=== PATIENT | female | born 1965 | race Caucasian/White ===

== ENCOUNTER 2016-02-25 09:45 | Emergency (ER) | payer MEDICAID ==
[~2016-02-25 09:45] MED LIST: BUPR150T3 PO; FEXO15TA PO; GEOD80CA PO; MONT10TA2 PO; PERC10TA27 PO; PROT40TA PO; TRAZ100T4 PO; VENL25TA PO
[2016-02-25 09:46] VITALS: BP 134/90; PULSE 75; RESP 15; TEMP 98.2; O2SAT 98
--- NOTE | 2016-02-25 10:37 | PD ---
HPI Chief Complaint: Laceration/Skin Injury Time Seen by Provider: 10:08 Travel History International Travel<30 days: No Contact w/Intl Traveler<30days: No Traveled to known affect area: No History of Present Illness HPI 50-year-old female presents to the emergency department with concern of an infection to her surgical wound of her right foot and is also requesting pain medication. She had foot surgery on February 03 that was performed by Dr. Gilliam. She says there is an area of red around the surgical incision that she thinks is infection. She denies paresthesias, loss of sensation, decreased range of motion, decreased strength to the affected extremity. She is using crutches for support. She has a postop shoe and an Jasen bandage in place. She denies fever, chills, nausea, vomiting. She has a follow-up appointment with Dr. Gilliam on March 18. Allergies to fentanyl, Motrin, Toradol. No significant past medical history. No other modifying factors or associated signs and symptoms. History Past Medical Histgory LMP: 02/12/16 Menopausal: Yes Hx Cancer: No Social History Alcohol Use: No Tobacco Use: No Allergies-Medications (Allergen,Severity, Reaction): Coded Allergies: Fentanyl (Verified Allergy, Severe, GI UPSET, 02/25/16) Motrin (Verified Allergy, Severe, Anaphylaxis, 02/25/16) Toradol (Verified Allergy, Severe, Anaphylaxis, 02/25/16) *MDRO Multi-Drug Resistant Organism (Verified Adverse Reaction, Unknown, Cleared, 02/25/16) MRSA (groin wound) - 09/2012 MRSA PCR Screen NEGATIVE - 02/11/2015, 02/13/2015 CLEARED BY INFECTION CONTROL Reported Meds & Prescriptions Reported Meds & Active Scripts Active Reported Bupropion HCl ER 24 HR (Bupropion HCl) 150 Mg Tab 200 Mg PO DAILY Iy Allergy (Fexofenadine HCl) 180 Mg Tab 180 Mg PO DAILY Protonix (Pantoprazole Sodium) 40 Mg Tab 40 Mg PO DAILY Effexor (Venlafaxine HCl) 25 Mg Tab 25 Mg PO HS Trazodone (Trazodone HCl) 100 Mg Tab 100 Mg PO HS Singulair (Montelukast Sodium) 10 Mg Tab 10 Mg PO DAILY Geodon (Ziprasidone) 80 Mg Cap 80 Mg PO HS Review of Systems Except as stated in HPI: all other systems reviewed are Neg Physical Exam Narrative GENERAL: Well-nourished, well-developed female patient, in no acute distress; afebrile, nontoxic-appearing SKIN: Warm and dry. Surgical wound to the lateral aspect of the right foot at the fifth metatarsal area that is well approximated and without drainage or warmth to touch; there is an area of erythema surrounding the surgical wound that is consistent with normal healing. Surgical wound consistent with normal healing and without signs of infection. HEAD: Atraumatic. Normocephalic. EYES: Pupils equal and round. No scleral icterus. No injection or drainage. ENT: Mucosa pink and moist. Airway patent. NECK: Trachea midline. CARDIOVASCULAR: Regular rate. RESPIRATORY: No accessory muscle use. GASTROINTESTINAL: Rounded. MUSCULOSKELETAL: Right foot is nonerythematous and nonedematous. Right lower extremity supple and non-tense with 2+ pedal pulses and sensory intact and without erythema or edema. No obvious deformities. No clubbing. No cyanosis. No edema. NEUROLOGICAL: Awake and alert. Oriented 3. No obvious cranial nerve deficits. Motor grossly within normal limits. Normal speech. PSYCHIATRIC: Appropriate mood and affect; insight and judgment normal. Data Data Last Documented VS Vital Signs Date Time Temp Pulse Resp B/P Pulse Ox O2 Delivery O2 Flow Rate FiO2 02/25/16 09:46 98.2 75 15 134/90 98 MDM Medical Screen Exam Complete: Yes Emergency Medical Condition: No Differential Diagnosis Medical clearance, wound infection, narcotic seeking Narrative Course 50-year-old female physical exam consistent with surgical wound to the right foot with normal healing and no signs of infection. Patient is afebrile. She denies fever, chills, nausea, vomiting. Dr. Alvarez did surgery on February 03. Patient has follow-up appointment with Dr. Alvarez on March 18. The patient is also requesting pain medications. I offered the patient a nonnarcotic and she declined this time. Instructed patient to follow up with Dr. Alvarez at scheduled appointment. Vital signs are stable and the patient is stable for outpatient follow-up and treatment. The patient has no urgent or emergent medical complaints. There is no emergent or urgent medical need at this time. I instructed the patient to follow up with their primary care provider. A medical screening exam was performed: At the time of evaluation the presenting medical condition was determined not to be of an emergent nature. The patient was given the option of receiving additional care, but declined. Patient was given options for additional community resources from which to obtain care. The Patient Has Been advised to seek medical attention for their presenting complaint. The patient has been advised to return to the ER at any time if an emergent condition develops. Primary Impression: Encounter for medical screening examination Condition: Stable Monse Burr Feb 25, 2016 10:37
== END 2016-02-25 10:48 | disposition left against medical advice (07) ==
LOC: NEPB 09:45
DX: M79.671 Pain in right foot (principal)
CPT/HCPCS: 99281

== ENCOUNTER 2016-03-08 14:55 | Emergency (ER) | payer MEDICAID ==
[~2016-03-08] VITALS: Ht 165.1 cm; Wt 60.0 kg
[~2016-03-08 14:55] MED LIST changes: -PERC10TA27 PO
[2016-03-08 14:57] VITALS: BP 156/80; PULSE 96; RESP 14; TEMP 98.2; O2SAT 97
--- NOTE | 2016-03-08 17:36 | PD ---
HPI Chief Complaint: Abdominal Pain Time Seen by Provider: 17:36 Travel History International Travel<30 days: No Contact w/Intl Traveler<30days: No Traveled to known affect area: No History of Present Illness HPI 50-year-old female with history of recurrent, chronic abdominal pain, presents to emergency department for evaluation a right lower abdominal pain. Patient states "I know something is wrong." States she has been losing weight she has been nauseous with vomiting. She denies any diarrhea. She states that "they always tell may have a UTI, but I know it's more." States that she went to her primary care provider this week and he "refuses to send her to a director of materials management." Patient has history of appendectomy. No hematuria. No vaginal discharge or bleeding. Subjective fever and chills. No other symptoms to report. PFSH Past Medical History Asthma: Yes Anxiety: Yes Depression: Yes Cancer: No Cardiovascular Problems: No COPD: Yes Diabetes: No Diminished Hearing: No Endocrine: No Gastrointestinal Disorders: No GERD: Yes Genitourinary: No Hepatitis: Yes (hx of HEP C 1999) Herniated Disk: Yes Hypertension: No Immune Disorder: No Implanted Vascular Access Dvce: No Musculoskeletal: Yes (DDD, FISHERING ON SPINE) Neurologic: No Psychiatric: Yes (PTSD) Reproductive: Yes (ENDOMETRIOSIS ) Respiratory: Yes (ASTHMA) Immunizations Current: Yes Seizures: Yes (BACK WHEN SHE USED COCAINE) Thyroid Disease: No Menopausal: Yes : 2 Para: 2 Past Surgical History Abdominal Surgery: Yes (colysectomy APPENDIX) Appendectomy: Yes Section: Yes (1991, 1994) Cholecystectomy: Yes (2007) Gynecologic Surgery: Yes (, hysterectomy ) Hysterectomy: Yes Tonsillectomy: Yes Other Surgery: Yes (2 RIGHT KNEE SX, 1 LEFT KNEE SX, BACK SX,FACE SX AND NOSE SX ) Social History Alcohol Use: No Tobacco Use: No Substance Use: No Allergies-Medications (Allergen,Severity, Reaction): Coded Allergies: Fentanyl (Verified Allergy, Severe, GI UPSET, 03/08/16) Motrin (Verified Allergy, Severe, Anaphylaxis, 03/08/16) Toradol (Verified Allergy, Severe, Anaphylaxis, 03/08/16) *MDRO Multi-Drug Resistant Organism (Verified Adverse Reaction, Unknown, Cleared, 02/25/16) MRSA (groin wound) - 09/2012 MRSA PCR Screen NEGATIVE - 02/11/2015, 02/13/2015 CLEARED BY INFECTION CONTROL Reported Meds & Prescriptions Reported Meds & Active Scripts Active Reported Bupropion HCl ER 24 HR (Bupropion HCl) 150 Mg Tab 200 Mg PO DAILY Yi Allergy (Fexofenadine HCl) 180 Mg Tab 180 Mg PO DAILY Protonix (Pantoprazole Sodium) 40 Mg Tab 40 Mg PO DAILY Effexor (Venlafaxine HCl) 25 Mg Tab 25 Mg PO HS Trazodone (Trazodone HCl) 100 Mg Tab 100 Mg PO HS Singulair (Montelukast Sodium) 10 Mg Tab 10 Mg PO DAILY Geodon (Ziprasidone) 80 Mg Cap 80 Mg PO HS Review of Systems Except as stated in HPI: all other systems reviewed are Neg Physical Exam Narrative GENERAL: Well-nourished female patient, in no acute distress SKIN: Warm and dry. HEAD: Atraumatic. Normocephalic. EYES: Pupils equal and round. No scleral icterus. No injection or drainage. ENT: No nasal bleeding or discharge. Mucous membranes pink and moist. NECK: Trachea midline. No JVD. CARDIOVASCULAR: Elevated rate and rhythm. No murmur appreciated. RESPIRATORY: No accessory muscle use. Clear to auscultation. Breath sounds equal bilaterally. GASTROINTESTINAL: Abdomen soft, nondistended. Suprapubic and right lower quadrant tenderness to palpation. Hepatic and splenic margins not palpable. MUSCULOSKELETAL: No obvious deformities. No clubbing. No cyanosis. No edema. NEUROLOGICAL: Awake and alert. No obvious cranial nerve deficits. Motor grossly within normal limits. Normal speech. Data Data Last Documented VS Vital Signs Date Time Temp Pulse Resp B/P Pulse Ox O2 Delivery O2 Flow Rate FiO2 03/08/16 14:57 98.2 96 14 156/80 97 Room Air Orders Urinalysis - C+S If Indicated (03/08/16 17:35) Complete Blood Count With Diff (03/08/16 17:35) Basic Metabolic Panel (Bmp) (03/08/16 17:35) Ondansetron Odt (Zofran Odt) (03/08/16 18:45) Ct Abd/Pel W Iv Contrast(Rout) (03/08/16 20:01) NPO (03/08/16 20:01) Morphine Inj (Morphine Inj) (03/08/16 20:15) Ondansetron Inj (Zofran Inj) (03/08/16 20:15) Sodium Chlor 0.9% 1000 Ml Inj (Ns 1000 M (03/08/16 20:01) Oral Contrast - Adult (03/08/16 20:13) Diatrizoate Liq ( Gastrohaim Liq) (03/08/16 20:21) Labs Laboratory Tests Test 03/08/16 18:40 White Blood Count 12.1 TH/MM3 Red Blood Count 3.98 MIL/MM3 Hemoglobin 10.0 GM/DL Hematocrit 30.5 % Mean Corpuscular Volume 76.6 FL Mean Corpuscular Hemoglobin 25.2 PG Mean Corpuscular Hemoglobin 33.0 % Concent Red Cell Distribution Width 14.4 % Platelet Count 330 TH/MM3 Mean Platelet Volume 7.3 FL Neutrophils (%) (Auto) 68.2 % Lymphocytes (%) (Auto) 21.5 % Monocytes (%) (Auto) 9.0 % Eosinophils (%) (Auto) 0.9 % Basophils (%) (Auto) 0.4 % Neutrophils # (Auto) 8.3 TH/MM3 Lymphocytes # (Auto) 2.6 TH/MM3 Monocytes # (Auto) 1.1 TH/MM3 Eosinophils # (Auto) 0.1 TH/MM3 Basophils # (Auto) 0.0 TH/MM3 CBC Comment DIFF FINAL Differential Comment Urine Color YELLOW Urine Turbidity CLEAR Urine pH 7.0 Urine Specific [place] 1.016 Urine Protein TRACE mg/dL Urine Glucose (UA) NEG mg/dL Urine Ketones NEG mg/dL Urine Occult Blood NEG Urine Nitrite NEG Urine Bilirubin NEG Urine Urobilinogen 2.0 MG/DL Urine Leukocyte Esterase NEG Urine RBC LESS THAN 1 /hpf Urine WBC 1 /hpf Urine Squamous Epithelial 1 /hpf Cells Urine Mucus FEW /lpf Microscopic Urinalysis Comment CULT NOT INDICATED Sodium Level 137 MEQ/L Potassium Level 3.2 MEQ/L Chloride Level 103 MEQ/L Carbon Dioxide Level 24.9 MEQ/L Anion Gap 9 MEQ/L Blood Urea Nitrogen 8 MG/DL Creatinine 0.71 MG/DL Estimat Glomerular Filtration 87 ML/MIN Rate Random Glucose 78 MG/DL Calcium Level 8.9 MG/DL [facility] Medical Decision Making Medical Screen Exam Complete: Yes Emergency Medical Condition: Yes Medical Record Reviewed: Yes Differential Diagnosis Personality disorder versus mood disorder versus malingering versus UTI versus STD Narrative Course 50-year-old female presents to emergency department for evaluation of recurrent lower abdominal pain. Patient appears without distress. She does have right lower quadrant tenderness to palpation. Workup is initiated in triage. Once a medical bed becomes available, patient will be transferred and care assumed by that provider. Condition: Stable Bettina Owen Mar 08, 2016 17:36
[2016-03-08] MEDS ORDERED: ONDANSETRON ODT 4 MG TAB PO ONE (18:45)
[2016-03-08 18:59] LABS: AUTOMATED NEUTROPHIL # 8.3 TH/MM3 (1.8-7.7); BASOPHIL % 0.4 % (0.0-2.0); EOSINOPHIL # 0.1 TH/MM3 (0-0.4); EOSINOPHIL % 0.9 % (0.0-4.0); HEMATOCRIT 30.5 % (35.0-46.0); HEMO FLAGS DIFF FINAL; LYMPH % 21.5 % (9.0-44.0); LYMPHOCYTE # 2.6 TH/MM3 (1.0-4.8); MEAN CELL VOLUME 76.6 FL (80.0-100.0); MEAN CORPUSCULAR HEMOGLOBIN 25.2 PG (27.0-34.0); NEUT % 68.2 % (16.0-70.0); PLATELET COUNT 330 TH/MM3 (150-450); RED BLOOD COUNT 3.98 MIL/MM3 (4.00-5.30); RED CELL DISTRIBUTION WIDTH 14.4 % (11.6-17.2); WHITE BLOOD COUNT 12.1 TH/MM3 (4.0-11.0)
[2016-03-08 19:05] LABS: BLOOD, URINE NEG (NEG); COMMENT (UR) CULT NOT INDICATED; CULTURE IF INDICATED CULT NOT INDICATED; GLUCOSE,URINE NEG (NEG); KETONE, URINE NEG (NEG); MUCUS URINE FEW /lpf (OCC); NITRITE,URINE NEG (NEG); SQUAMOUS EPITHELIAL CELL URINE 1 /hpf (0-5); URINE COLOR YELLOW (YELLW/STRAW)
[2016-03-08 19:23] LABS: BICARBONATE 24.9 MEQ/L (21.0-32.0); POTASSIUM 3.2 MEQ/L (3.5-5.1)
[2016-03-08] MEDS ORDERED: SODIUM CHLOR 0.9% 1000 ML INJ 1,000 ML IV SCH (20:01)
[2016-03-08] MEDS ORDERED: MORPHINE SULFATE 4 MG/ML INJ IV PUSH ONE (20:15)
[2016-03-08] MEDS ORDERED: ONDANSETRON HCL 4 MG/2 ML VIAL IVP ONE (20:15)
[2016-03-08 20:20] VITALS: BP 144/84; PULSE 100; RESP 14; O2SAT 98
[2016-03-08] MEDS ORDERED: DIATRIZOATE MEGLUM/DIATRIZOATE SOD 9 ML CUP ONE (20:21)
--- NOTE | 2016-03-08 20:38 | PD ---
Physical Exam Date Seen by Provider: Mar 08, 2016 Time Seen by Provider: 20:00 Narrative 50-year-old female with history of chronic abdominal pain comes in with worsening right lower quadrant pain over the last 4 days and decreased ability to eat, with nausea and vomiting. Patient denies constipation or diarrhea. Patient denies fever. Patient was seen in triage, Bettina AGUDELO. Labs and urinalysis were ordered in triage. Data Data Last Documented VS Vital Signs Date Time Temp Pulse Resp B/P Pulse Ox O2 Delivery O2 Flow Rate FiO2 03/08/16 22:26 94 14 152/78 99 Room Air 03/08/16 14:57 98.2 Orders Urinalysis - C+S If Indicated (03/08/16 17:35) Complete Blood Count With Diff (03/08/16 17:35) Basic Metabolic Panel (Bmp) (03/08/16 17:35) Ondansetron Odt (Zofran Odt) (03/08/16 18:45) Ct Abd/Pel W Iv Contrast(Rout) (03/08/16 20:01) NPO (03/08/16 20:01) Morphine Inj (Morphine Inj) (03/08/16 20:15) Ondansetron Inj (Zofran Inj) (03/08/16 20:15) Sodium Chlor 0.9% 1000 Ml Inj (Ns 1000 M (03/08/16 20:01) Oral Contrast - Adult (03/08/16 20:13) Diatrizoate Liq ( Gastrohaim Liq) (03/08/16 20:21) Morphine Inj (Morphine Inj) (03/08/16 22:15) Hydromorphone Pf Inj (Dilaudid Pf Inj) (03/08/16 22:15) Iohexol 350 Inj (Omnipaque 350 Inj) (03/08/16 22:29) Labs Laboratory Tests Test 03/08/16 18:40 White Blood Count 12.1 TH/MM3 Red Blood Count 3.98 MIL/MM3 Hemoglobin 10.0 GM/DL Hematocrit 30.5 % Mean Corpuscular Volume 76.6 FL Mean Corpuscular Hemoglobin 25.2 PG Mean Corpuscular Hemoglobin 33.0 % Concent Red Cell Distribution Width 14.4 % Platelet Count 330 TH/MM3 Mean Platelet Volume 7.3 FL Neutrophils (%) (Auto) 68.2 % Lymphocytes (%) (Auto) 21.5 % Monocytes (%) (Auto) 9.0 % Eosinophils (%) (Auto) 0.9 % Basophils (%) (Auto) 0.4 % Neutrophils # (Auto) 8.3 TH/MM3 Lymphocytes # (Auto) 2.6 TH/MM3 Monocytes # (Auto) 1.1 TH/MM3 Eosinophils # (Auto) 0.1 TH/MM3 Basophils # (Auto) 0.0 TH/MM3 CBC Comment DIFF FINAL Differential Comment Urine Color YELLOW Urine Turbidity CLEAR Urine pH 7.0 Urine Specific [place] 1.016 Urine Protein TRACE mg/dL Urine Glucose (UA) NEG mg/dL Urine Ketones NEG mg/dL Urine Occult Blood NEG Urine Nitrite NEG Urine Bilirubin NEG Urine Urobilinogen 2.0 MG/DL Urine Leukocyte Esterase NEG Urine RBC LESS THAN 1 /hpf Urine WBC 1 /hpf Urine Squamous Epithelial 1 /hpf Cells Urine Mucus FEW /lpf Microscopic Urinalysis Comment CULT NOT INDICATED Sodium Level 137 MEQ/L Potassium Level 3.2 MEQ/L Chloride Level 103 MEQ/L Carbon Dioxide Level 24.9 MEQ/L Anion Gap 9 MEQ/L Blood Urea Nitrogen 8 MG/DL Creatinine 0.71 MG/DL Estimat Glomerular Filtration 87 ML/MIN Rate Random Glucose 78 MG/DL Calcium Level 8.9 MG/DL [facility] Medical Record Reviewed: Yes Supervised Visit with CINDY: Yes Differential Diagnosis Anxiety. Right lower quadrant pain. Diverticulitis. UTI. Malingering. Chronic pain. Narrative Course Labs reviewed showing slight leukocytosis. Urine is normal. CMP is unremarkable. Exam shows somewhat localized right lower quadrant tenderness with deep palpation and percussion rebound. Question psoas sign. CT of the abdomen is ordered with oral and IV contrast. Patient is given normal saline bolus of 1000 mL. Patient also given 4 mg IV Zofran, and [address] shows ill-defined inflammatory changes of the prevertebral soft tissue of the L4 5 level. The cause of this inflammatory changes not clearly seen. The adjacent bony structures appear intact. Inflammatory change of clots the venous structures in this region. The arterial structures are intact. Retroperitoneal fibrosis could potentially have this appearance. The patient does have suspected incidental stable small hernia lateral to the left rectus abdominal muscle containing only a small amount of mesenteric fat. Patient also has a mild hiatal hernia. This is per the radiologist. These findings were discussed with Dr. Franz. Dr. Franz feels the patient is stable and discharged home. She'll be given Zofran for nausea. She is given Lortab 5/325 one to 2 every 6 hours when necessary pain #20. She is to follow with her primary care physician and may need an MRI, which is discussed with the patient. Patient is also given the name of the GI consult on-call today. Patient may return to emergency Department with worsening symptoms as necessary. Diagnosis Primary Impression: Abdominal pain Qualified Code: R10.31 - Right lower quadrant abdominal pain Additional Impression: Nausea and vomiting Qualified Code: R11.2 - Non-intractable vomiting with nausea, unspecified vomiting type Referrals: Sury Jean-Baptiste MD Primary Care Physician Patient Instructions: Abdominal Pain (ED), Acute Nausea and Vomiting (ED), General Instructions, Narcotic given in the ED Additional Instruction: CT shows ill-defined inflammatory changes of the prevertebral soft tissue of the L4 5 level. The cause of this inflammatory changes not clearly seen. The adjacent bony structures appear intact. Inflammatory change of clots the venous structures in this region. The arterial structures are intact. Retroperitoneal fibrosis could potentially have this appearance. The patient does have suspected incidental stable small hernia lateral to the left rectus abdominal muscle containing only a small amount of mesenteric fat. Patient also has a mild hiatal hernia. This is per the radiologist. These findings were discussed with Dr. Franz. Dr. Franz feels the patient is stable and discharged home. She'll be given Zofran for nausea. She is given Lortab 5/325 one to 2 every 6 hours when necessary pain #20. She is to follow with her primary care physician and may need an MRI, which is discussed with the patient. Patient is also given the name of the GI consult on-call today. Patient may return to emergency Department with worsening symptoms as necessary. Scripts Hydrocodone-Acetaminophen (Lortab)5-325 Mg Tab1-2 Tab PO Q6H PRN (PAIN) #20 TAB Ref 0 Prov:Davian Franz MD 03/08/16 Ondansetron (Zofran)4 Mg Tab4 Mg PO Q6HR PRN (NAUSEA OR VOMITING) #12 TAB Prov:Davian Franz MD 03/08/16 Disposition: DISCHARGE HOME Condition: Stable Adelfo Dias F. PA Mar 08, 2016 20:38
[2016-03-08 21:30] VITALS: BP 148/76; PULSE 90; RESP 16; O2SAT 96
[2016-03-08] MEDS ORDERED: MORPHINE SULFATE 8 MG/ML INJ IV PUSH ONE (22:15)
[2016-03-08] MEDS ORDERED: HYDROmorphone HCL PF 1 MG/ML VIAL IV PUSH ONE (22:15)
[2016-03-08 22:26] VITALS: BP 152/78; PULSE 94; RESP 14; O2SAT 99
[2016-03-08] MEDS ORDERED: IOHEXOL 350 MG/ML 10 ML VIAL (for RAD DIAG) IV ONE (22:29)
--- NOTE | 2016-03-08 22:42 | RADRPT ---
EXAM DATE/TIME: 03/08/2016 22:23 [facility] COMPARISON: CT ABDOMEN & PELVIS W CONTRAST, January 11, 2016, 17:07. INDICATIONS : Diffuse abdominal pain for 3 days. IV CONTRAST: 92 cc Omnipaque 350 (iohexol) IV ORAL CONTRAST: Prescribed oral contrast ingested. RADIATION DOSE: 5.99 CTDIvol (mGy) MEDICAL HISTORY : Hepatitis C. SURGICAL HISTORY : Appendectomy. Cholecystectomy.Hysterectomy. ENCOUNTER: Initial ACUITY: 3 days PAIN SCALE: 4/10 LOCATION: Abdomen/pelvis TECHNIQUE: Volumetric scanning of the abdomen and pelvis was performed. Using automated exposure control and ad justment of the mA and/or kV according to patient size, radiation dose was kept as low as reasonably achievable to obtain optimal diagnostic quality images. FINDINGS: LOWER LUNGS: The visualized lower lungs are clear. LIVER: Homogeneous density without lesion. There is no dilation of the biliary tree. The patient is status post cholecystectomy. SPLEEN: Normal size without lesion. PANCREAS: Within normal limits. KIDNEYS: Normal in size and shape. There is no mass, stone or hydronephrosis. 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 ADRENAL GLANDS: Within normal limits. VASCULAR: There is no aortic aneurysm. BOWEL/MESENTERY: The stomach, small bowel, and colon demonstrate no acute abnormality. There is no free intraperitone al air or fluid. There is a small hiatal hernia present. ABDOMINAL WALL: There is a small hernia is seen lateral to the left rectus abdominal muscle containing only mesenteri c fat. This was present previously. The defect measures 1 cm. RETROPERITONEUM: There is increased ill-defined density seen in the prevertebral region anterior to the L4 and L5 vert ebral bodies. There is no lymphadenopathy. BLADDER: No wall thickening or mass. REPRODUCTIVE: The patient is status post hysterectomy. INGUINAL: There is no lymphadenopathy or hernia. MUSCULOSKELETAL: Within normal limits for patient age. CONCLUSION: 1. Ill-defined inflammatory change in the prevertebral soft tissues at the L4-L5 level. The cause of this inflammatory change is not clearly seen. The adjacent bony structures appear intact. The inflamm atory change abuts the venous structures in this region. The arterial structures are intact. Retroper itoneal fibrosis could potentially have this appearance. 2. Suspected incidental stable small hernia lateral to the left rectus abdominal muscle containing on ly a small amount of mesenteric fat. 3. Mild hiatal hernia. Ab Wan MD on March 08, 2016 at 22:32 Board Certified Radiologist. This report was verified electronically.
[2016-03-08] MEDS ORDERED: HYDR-3533 PO (23:00)
[2016-03-08] MEDS ORDERED: ZOFR4TAB PO (23:00)
== END 2016-03-09 00:04 | disposition home or self-care (01) ==
LOC: NEPE 14:55
DX: R10.31 Right lower quadrant pain (principal); R11.2 Nausea with vomiting, unspecified; J45.909 Unspecified asthma, uncomplicated; J44.9 Chronic obstructive pulmonary disease, unspecified
CPT/HCPCS: 74177; 80048; 81001; 85025; 96374; 96375; 96376; 99284; J2270; J2405; J7030; Q9963; Q9967

== ENCOUNTER 2016-03-16 10:37 | Emergency (ER) | payer MEDICAID ==
[~2016-03-16] VITALS: Ht 165.1 cm; Wt 61.5 kg
[~2016-03-16 10:37] MED LIST changes: +HYDR-3533 PO; +ZOFR4TAB PO
[2016-03-16 10:43] VITALS: BP 124/79; PULSE 89; RESP 16; TEMP 99.4; O2SAT 99
[2016-03-16] MEDS ORDERED: LORazepam 2 MG/ML VIAL IM ONE (11:30)
[2016-03-16] MEDS ORDERED: MORPHINE SULFATE 4 MG/ML INJ IM ONE (11:30)
--- NOTE | 2016-03-16 11:43 | PD ---
HPI . Low back pain Chief Complaint: Back/ Neck Pain or Injury Time Seen by Provider: 11:11 Travel History International Travel<30 days: No Contact w/Intl Traveler<30days: No Traveled to known affect area: No History of Present Illness HPI Patient presents with low back pain. The patient was seen in the emergency department on 03/08 with a complaint of abdominal and back pain. She had a CT scan of her abdomen done at that time which showed "ill-defined inflammatory changes in the prevertebral soft tissue at the L4- L5 level." The patient was discharged home with instructions to follow with her primary care provider. She states that she has done so and that she has an MRI scheduled for the . However, since that time, her back pain has become progressively worse. She states that it is "driving her crazy." She states that she is only comfortable laying flat on her back on a heating pad. She further states that she has soiled herself several times because she was unable to get to the bathroom in time. It is unclear to me if this was true incontinence or if she soiled herself because of pain associated with movement as she was attempting to go to the bathroom. In addition, the patient is concerned about low potassium. PFSH Past Medical History Asthma: Yes Anxiety: Yes Depression: Yes Cancer: No Cardiovascular Problems: No COPD: Yes Diabetes: No Diminished Hearing: No Endocrine: No Gastrointestinal Disorders: No GERD: Yes Genitourinary: No Hepatitis: Yes (hx of HEP C 1999) Herniated Disk: Yes Hypertension: No Immune Disorder: No Implanted Vascular Access Dvce: No Musculoskeletal: Yes (DDD, FISHERING ON SPINE) Neurologic: No Psychiatric: Yes (PTSD) Reproductive: Yes (ENDOMETRIOSIS ) Respiratory: Yes (ASTHMA) Immunizations Current: Yes Seizures: Yes (BACK WHEN SHE USED COCAINE) Thyroid Disease: No ?: Not Menopausal: Yes : 2 Para: 2 Past Surgical History Abdominal Surgery: Yes (colysectomy APPENDIX) Appendectomy: Yes Section: Yes (1991, 1994) Cholecystectomy: Yes (2007) Gynecologic Surgery: Yes (, hysterectomy ) Hysterectomy: Yes Tonsillectomy: Yes Other Surgery: Yes (2 RIGHT KNEE SX, 1 LEFT KNEE SX, BACK SX,FACE SX AND NOSE SX ) Social History Alcohol Use: No Tobacco Use: No Substance Use: No Allergies-Medications (Allergen,Severity, Reaction): Coded Allergies: Fentanyl (Verified Allergy, Severe, GI UPSET, 03/16/16) Motrin (Verified Allergy, Severe, Anaphylaxis, 03/16/16) Toradol (Verified Allergy, Severe, Anaphylaxis, 03/16/16) *MDRO Multi-Drug Resistant Organism (Verified Adverse Reaction, Unknown, Cleared, 03/16/16) MRSA (groin wound) - 09/2012 MRSA PCR Screen NEGATIVE - 02/11/2015, 02/13/2015 CLEARED BY INFECTION CONTROL Reported Meds & Prescriptions Reported Meds & Active Scripts Active Lortab (Hydrocodone-Acetaminophen) 5-325 Mg Tab 1-2 Tab PO Q6H PRN Zofran (Ondansetron HCl) 4 Mg Tab 4 Mg PO Q6HR PRN Reported Bupropion HCl ER 24 HR (Bupropion HCl) 150 Mg Tab 200 Mg PO DAILY Yi Allergy (Fexofenadine HCl) 180 Mg Tab 180 Mg PO DAILY Protonix (Pantoprazole Sodium) 40 Mg Tab 40 Mg PO DAILY Effexor (Venlafaxine HCl) 25 Mg Tab 25 Mg PO HS Trazodone (Trazodone HCl) 100 Mg Tab 100 Mg PO HS Singulair (Montelukast Sodium) 10 Mg Tab 10 Mg PO DAILY Geodon (Ziprasidone) 80 Mg Cap 80 Mg PO HS Review of Systems Except as stated in HPI: all other systems reviewed are Neg General / Constitutional: Positive: Fever Gastrointestinal: Positive: Other (incontinent of stool) Genitourinary: No: Incontinence Musculoskeletal: Positive: Pain (low back pain) Neurologic: No: Weakness, Focal Abnormalities Physical Exam Narrative GENERAL: This patient was initially very histrionic. She was tearful and stating that her symptoms were driving her crazy. Subsequently, however, she has a normal affect SKIN: Warm and dry. She has some apparent track vaughan on her upper extremities. She attributes these to lab draws and IVs. HEAD: Atraumatic. Normocephalic. EYES: Pupils equal and round. ENT: No nasal bleeding or discharge. Mucous membranes pink and moist. NECK: Trachea midline. CARDIOVASCULAR: Regular rate and rhythm. RESPIRATORY: No accessory muscle use. GASTROINTESTINAL: Abdomen soft, non-tender, nondistended. : Rectal exam shows good tone. MUSCULOSKELETAL: No obvious deformities. No edema. She has a well controlled surgical scar over her lower lumbar spine. She is tender in that area. The overlying skin is not red or hot. NEUROLOGICAL: Awake and alert. No obvious cranial nerve deficits. Motor grossly within normal limits. Normal speech. PSYCHIATRIC: Appropriate mood and affect; insight and judgment questionable. Data Data Last Documented VS Vital Signs Date Time Temp Pulse Resp B/P Pulse Ox O2 Delivery O2 Flow Rate FiO2 03/16/16 10:43 99.4 89 16 124/79 99 Orders Morphine Inj (Morphine Inj) (03/16/16 11:30) Lorazepam Inj (Ativan Inj) (03/16/16 11:30) Basic Metabolic Panel (Bmp) (03/16/16 11:21) Lorazepam Inj (Ativan Inj) (03/16/16 12:30) Mri L Spine W&W/O Contrast (03/16/16 11:21) Gadodiamide Pf Inj (Omniscan Pf Inj) (03/16/16 14:05) Labs Laboratory Tests Test 03/16/16 12:15 Sodium Level 136 MEQ/L Potassium Level 4.2 MEQ/L Chloride Level 103 MEQ/L Carbon Dioxide Level 23.9 MEQ/L Anion Gap 9 MEQ/L Blood Urea Nitrogen 9 MG/DL Creatinine 0.83 MG/DL Estimat Glomerular Filtration 72 ML/MIN Rate Random Glucose 91 MG/DL Calcium Level 8.6 MG/DL MDM Medical Decision Making Medical Screen Exam Complete: Yes Emergency Medical Condition: Yes Medical Record Reviewed: Yes Differential Diagnosis Differential diagnosis includes but is not limited to muscular low back pain, DDD, spinal stenosis, epidural abscess, sciatica, kidney infection or stone. Narrative Course Patient presents for evaluation treatment of back pain. Patient was seen in the main ED on 03/08 with the complaint of abdominal pain. At that time, she had a CT of her abdomen that showed some vertebral soft tissue inflammation. Since that time, she has had worsening low back pain. She reports incontinence of stool. She also reports fever. She has some possible track vaughan. Therefore, she will be evaluated for possible epidural abscess. However, the patient's countenance changed dramatically from the time of presentation to the time of rectal examination which was maybe 15 minutes. She was noted to be able to sit up and lay down and turn over with no distress at all. CBC & BMP Diagram 03/16/16 12:15 MRI results: "CONCLUSION: 1. Small broad based central disc bulge at L4-5 as well as facet joint hypertrophy and ligamentous laxity resulting in mild to moderate spinal stenosis and mild bilateral foraminal narrowing. 2. Minimal spinal stenosis and bilateral foraminal narrowing at L1-2, L2-3, and L3-4 secondary to diffuse disc bulges, facet joint hypertrophy and ligamentous laxity. 3. Annular tear at L4-5. 4. Degenerative disc disease from L1 through L5. 5. No abnormal enhancement within the lumbar spine." No evidence of epidural abscess. Diagnosis Primary Impression: Low back pain Qualified Code: M54.5 - Acute midline low back pain without sciatica Additional Instructions: See your doctor for ongoing pain management. Disposition: 01 DISCHARGE HOME Condition: Stable Anel Quinteros MD Mar 16, 2016 11:42
[2016-03-16 12:28] LABS: POTASSIUM 4.2 MEQ/L (3.5-5.1)
[2016-03-16] MEDS ORDERED: LORazepam 2 MG/ML VIAL IV PUSH ONE (12:30)
[2016-03-16 12:31] LABS: BICARBONATE 23.9 MEQ/L (21.0-32.0)
[2016-03-16] MEDS ORDERED: GADODIAMIDE PF 287 MG/ML 5 ML VIAL (for RAD MRI) IV ONE (14:05)
--- NOTE | 2016-03-16 15:10 | RADHPO ---
EXAM DATE/TIME: 03/16/2016 13:46 [facility] COMPARISON: MRI LUMBAR SPINE W & W/O CONTRAST, February 14, 2015, 9:35. INDICATIONS : Pain. CONTRAST: 12 cc Omniscan (gadodiamide) IV MEDICAL HISTORY : Hepatitis C. SURGICAL HISTORY : Cholecystectomy. Appendectomy. section. Right foot. Lumbar laminectomy. ENCOUNTER: Subsequent ACUITY: 3 day PAIN SCORE: 10/10 LOCATION: Lower back. TECHNIQUE: Multiplanar multisequence MRI of the lumbar spine was performed with and without contrast. FINDINGS: The sagittal images demonstrate loss of disc height and signal intensity at L1-2, L2-3, L3-4 and L4-5 consistent with degenerative disc disease at these levels. The height and signal intensity of the L 5-S1 disc space is relatively well maintained. Mild diffuse disc bulges are noted at L1-2, L2-3 and L 3-4 and minimal central disc bulge is noted at L4-5. Annular tear is noted at L4-5 also. The lumbar vertebral bodies are normal in height and marrow intensity. There is no abnormal enhancement of the lumbar spine. There is no compression fracture or spondylolisthesis of the lumbar spine. T12-L1: There is no significant spinal stenosis, disc bulge or variation. The bilateral neural foramina are patent. The facet joints and ligaments are unremarkable. L1-L2: There is a minimal diffuse disc bulge as well as facet joint hypertrophy and ligamentous laxity resul ting in minimal bilateral foraminal narrowing and spinal stenosis. No focal disc herniation is noted . L2-L3: There is a minimal diffuse disc bulge as well as facet joint hypertrophy and ligamentous laxity resul ting in minimal bilateral foraminal narrowing and spinal stenosis. No focal disc herniation is noted . L3-L4: There is a minimal diffuse disc bulge as well as facet joint hypertrophy and ligamentous laxity resul ting in minimal bilateral foraminal narrowing and spinal stenosis. No focal disc herniation is noted . L4-L5: There is a mild broad based central disc bulge as well as facet joint hypertrophy and ligamentous lax ity resulting in mild to moderate circumferential spinal stenosis and mild bilateral foraminal narrow ing. L5-S1: There is no significant spinal stenosis or neural foraminal narrowing. No focal disc herniation is n oted. The facet joints are unremarkable. CONCLUSION: 1. Small broad based central disc bulge at L4-5 as well as facet joint hypertrophy and ligamentous la xity resulting in mild to moderate spinal stenosis and mild bilateral foraminal narrowing. 2. Minimal spinal stenosis and bilateral foraminal narrowing at L1-2, L2-3, and L3-4 secondary to dif fuse disc bulges, facet joint hypertrophy and ligamentous laxity. 3. Annular tear at L4-5. 4. Degenerative disc disease from L1 through L5. 5. No abnormal enhancement within the lumbar spine. Benedicto Wilkins MD on March 16, 2016 at 14:52 Board Certified Radiologist. This report was verified electronically.
[2016-03-16 16:01] VITALS: BP 112/68
== END 2016-03-16 16:13 | disposition home or self-care (01) ==
LOC: PHED 10:37
DX: M54.5 Low back pain (principal); M51.36 Other intervertebral disc degeneration, lumbar region; M48.06 Spinal stenosis, lumbar region
CPT/HCPCS: 72158; 80048; 96374; 96375; 99283; A9579; J2060; J2270

== ENCOUNTER 2016-03-22 17:14 | Emergency (ER) | payer MEDICAID ==
[~2016-03-22] VITALS: Ht 165.1 cm; Wt 90.5 kg
[2016-03-22 17:21] VITALS: BP 143/83; PULSE 96; RESP 18; TEMP 98.4; O2SAT 98
--- NOTE | 2016-03-22 19:12 | PD ---
HPI Chief Complaint: Pain: Acute or Chronic Time Seen by Provider: 19:11 Travel History International Travel<30 days: No Contact w/Intl Traveler<30days: No Traveled to known affect area: No History of Present Illness HPI 51-year-old female with a history of chronic low back pain presents to the emergency department for evaluation of low back pain for 3 weeks. Denies any injury or trauma to her back. Pain is located in the lumbar region. Denies any radiation of pain. Denies any numbness or tingling, weakness, saddle anesthesia, bowel or bladder incontinence. Pain is aggravated with movement. Denies any alleviating factors. Patient states she was seen here recently and had a CT scan which showed something on her lumbar spine and then she came back and had an MRI of the lumbar spine but cannot remember what the MRI results read. States that she was supposed to see her pain management physician today in [place] but reports when she got there she was not seen because they did not get her MRI results. States that she will run out of her Lortab tomorrow and that she is still having low back pain. States that her PCP "refuses to see me." No other complaints. PFSH Past Medical History Asthma: Yes Anxiety: Yes Depression: Yes Cancer: No Cardiovascular Problems: No COPD: Yes Diabetes: No Diminished Hearing: No Endocrine: No Gastrointestinal Disorders: No GERD: Yes Genitourinary: No Hepatitis: Yes (hx of HEP C 1999) Herniated Disk: Yes Hypertension: No Immune Disorder: No Implanted Vascular Access Dvce: No Musculoskeletal: Yes (DDD, FISHERING ON SPINE) Neurologic: No Psychiatric: Yes (PTSD) Reproductive: Yes (ENDOMETRIOSIS ) Respiratory: Yes (asthma) Immunizations Current: Yes Seizures: Yes (BACK WHEN SHE USED COCAINE) Thyroid Disease: No ?: Not Menopausal: Yes : 2 Para: 2 Past Surgical History Abdominal Surgery: Yes (colysectomy APPENDIX) Appendectomy: Yes Section: Yes (1991, 1994) Cholecystectomy: Yes (2007) Gynecologic Surgery: Yes (, hysterectomy ) Hysterectomy: Yes Tonsillectomy: Yes Other Surgery: Yes (2 RIGHT KNEE SX, 1 LEFT KNEE SX, BACK SX,FACE SX AND NOSE SX ) Social History Alcohol Use: No Tobacco Use: No Substance Use: No Allergies-Medications (Allergen,Severity, Reaction): Coded Allergies: Fentanyl (Verified Allergy, Severe, GI UPSET, 03/22/16) Motrin (Verified Allergy, Severe, Anaphylaxis, 03/22/16) Toradol (Verified Allergy, Severe, Anaphylaxis, 03/22/16) *MDRO Multi-Drug Resistant Organism (Verified Adverse Reaction, Unknown, Cleared, 03/22/16) MRSA (groin wound) - 09/2012 MRSA PCR Screen NEGATIVE - 02/11/2015, 02/13/2015 CLEARED BY INFECTION CONTROL Reported Meds & Prescriptions Reported Meds & Active Scripts Active Lortab (Hydrocodone-Acetaminophen) 5-325 Mg Tab 1-2 Tab PO Q6H PRN Reported Bupropion HCl ER 24 HR (Bupropion HCl) 150 Mg Tab 200 Mg PO DAILY Yi Allergy (Fexofenadine HCl) 180 Mg Tab 180 Mg PO DAILY Protonix (Pantoprazole Sodium) 40 Mg Tab 40 Mg PO DAILY Effexor (Venlafaxine HCl) 25 Mg Tab 25 Mg PO HS Trazodone (Trazodone HCl) 100 Mg Tab 100 Mg PO HS Singulair (Montelukast Sodium) 10 Mg Tab 10 Mg PO DAILY Geodon (Ziprasidone) 80 Mg Cap 80 Mg PO HS Review of Systems Except as stated in HPI: all other systems reviewed are Neg Physical Exam Narrative GENERAL: Well-nourished and well-developed female patient in no acute distress. SKIN: Warm and dry. HEAD: Normocephalic and atraumatic. EYES: No injection, drainage, or hyphema noted. PERRLA. EOMI. ENT: No nasal drainage noted. Oropharynx is clear. NECK: Supple and the trachea is midline. CARDIOVASCULAR: Regular rate and rhythm. RESPIRATORY: Breath sounds are equal bilaterally with no accessory muscle use, wheezing, rhonchi, or crackles. MUSCULOSKELETAL: No obvious deformities, swelling, cyanosis, or ecchymosis is present throughout the upper and lower extremities. Patient has full range of motion without any signs of neurovascular compromise. BACK: Mild tenderness throughout lumbar region. No obvious deformities, bony point tenderness, or crepitus noted throughout the thoracic and lumbar vertebrae. NEUROLOGICAL: Awake, alert, and oriented. Normal speech and gait. Cranial nerves are grossly intact. Data Data Last Documented VS Vital Signs Date Time Temp Pulse Resp B/P Pulse Ox O2 Delivery O2 Flow Rate FiO2 03/22/16 17:21 98.4 96 18 143/83 98 MDM Medical Decision Making Medical Screen Exam Complete: Yes Emergency Medical Condition: Yes Differential Diagnosis Chronic back pain versus acute on chronic pain versus drug seeking behavior Narrative Course 51-year-old female presents to the emergency department for evaluation of low back pain. Patient is afebrile, vital signs are stable. She is been seen here in our emergency department multiple times recently for pain complaints. Physical examination today shows no red flag signs or symptoms. She was seen here one week ago and had an lumbar spine MRI that showed degenerative changes but no acute abnormalities. She sees a pain management physician in [place] who prescribes her Lortab. I did look the patient upon [facility] [place] prescription drug monitoring program which shows she received a 30 day supply of Lortab 02/23/16, meaning that she should have 3 more days of her pain prescription left. She also has 30 days of Soma that was prescribed 03/10/16. I discussed with her that I would be happy to refill any non narcotic medications for her. She informs me that nothing else will work for her. Therefore she will be discharged with no prescriptions. She's instructed to follow-up with her pain management physician. Diagnosis Primary Impression: Chronic lower back pain Qualified Code: M54.5 - Chronic low back pain without sciatica, unspecified back pain laterality Referrals: Pain Management Patient Instructions: Chronic Back Pain (ED), General Instructions Additional Instructions: Take your at-home pain medications as prescribed by your physician. Follow-up with your Pain management physician. Return to the ED for any acute worsening of symptoms. Med/Other Pt SpecificInfo: No Change to Meds Disposition: 01 DISCHARGE HOME Condition: Stable Monse Pruitt Mar 22, 2016 19:12
== END 2016-03-22 19:21 | disposition home or self-care (01) ==
LOC: PHED 17:14 → PHEFT 19:21
DX: M54.5 Low back pain (principal); G89.29 Other chronic pain; J45.909 Unspecified asthma, uncomplicated
CPT/HCPCS: 99283

== ENCOUNTER 2016-03-26 11:55 | Emergency (ER) | payer MEDICAID ==
[~2016-03-26 11:55] MED LIST changes: -ZOFR4TAB PO
[2016-03-26 11:57] VITALS: BP 150/87; PULSE 95; RESP 15; TEMP 98.1; O2SAT 98
[2016-03-26] MEDS ORDERED: PRED-503 PO (12:30)
[2016-03-26] MEDS ORDERED: ROBA500T PO (12:30)
--- NOTE | 2016-03-26 12:31 | PD ---
HPI Chief Complaint: Musculoskeletal Complaint Time Seen by Provider: 12:28 Travel History International Travel<30 days: No Contact w/Intl Traveler<30days: No Traveled to known affect area: No History of Present Illness HPI 51-year-old female presents to the emergency department complaining of left- sided sciatica. She has history of chronic low back pain with sciatica from 2008. Is requesting a refill on her Lortab. She denies new or recent injury. Denies encopresis, incontinence, saddle anesthesias. Denies IV drug use. Denies cancer. Denies paresthesias, loss of sensation, decreased range of motion, decreased strength to bilateral lower extremities. Denies fever, chills , nausea, vomiting. Pain is aggravated with movement. Has been taking Motrin with no relief of pain. No known relieving factors. Has primary care provider. Sees pain management. History of asthma. No other modifying factors or associated signs and symptoms. PFSH Past Medical History Asthma: Yes Anxiety: Yes Depression: Yes Cancer: No Cardiovascular Problems: No COPD: Yes Diabetes: No Diminished Hearing: No Endocrine: No Gastrointestinal Disorders: No GERD: Yes Genitourinary: No Hepatitis: Yes (hx of HEP C 1999) Herniated Disk: Yes Hypertension: No Immune Disorder: No Implanted Vascular Access Dvce: No Musculoskeletal: Yes (DDD, FISHERING ON SPINE) Neurologic: No Psychiatric: Yes (PTSD) Reproductive: Yes (ENDOMETRIOSIS ) Respiratory: Yes (asthma) Immunizations Current: Yes Seizures: Yes (BACK WHEN SHE USED COCAINE) Thyroid Disease: No Menopausal: Yes : 2 Para: 2 Past Surgical History Abdominal Surgery: Yes (colysectomy APPENDIX) Appendectomy: Yes Section: Yes (1991, 1994) Cholecystectomy: Yes (2007) Gynecologic Surgery: Yes (, hysterectomy ) Hysterectomy: Yes Tonsillectomy: Yes Other Surgery: Yes (2 RIGHT KNEE SX, 1 LEFT KNEE SX, BACK SX,FACE SX AND NOSE SX ) Social History Alcohol Use: No Tobacco Use: No Substance Use: No Allergies-Medications (Allergen,Severity, Reaction): Coded Allergies: Fentanyl (Verified Allergy, Severe, GI UPSET, 03/26/16) Motrin (Verified Allergy, Severe, Anaphylaxis, 03/26/16) Toradol (Verified Allergy, Severe, Anaphylaxis, 03/26/16) *MDRO Multi-Drug Resistant Organism (Verified Adverse Reaction, Unknown, Cleared, 03/26/16) MRSA (groin wound) - 09/2012 MRSA PCR Screen NEGATIVE - 02/11/2015, 02/13/2015 CLEARED BY INFECTION CONTROL Reported Meds & Prescriptions Reported Meds & Active Scripts Active Robaxin (Methocarbamol) 500 Mg Tab 500 Mg PO QID PRN Deltasone (Prednisone) 20 Mg Tab 40 Mg PO DAILY 5 Days Lortab (Hydrocodone-Acetaminophen) 5-325 Mg Tab 1-2 Tab PO Q6H PRN Reported Bupropion HCl ER 24 HR (Bupropion HCl) 150 Mg Tab 200 Mg PO DAILY Yi Allergy (Fexofenadine HCl) 180 Mg Tab 180 Mg PO DAILY Protonix (Pantoprazole Sodium) 40 Mg Tab 40 Mg PO DAILY Effexor (Venlafaxine HCl) 25 Mg Tab 25 Mg PO HS Trazodone (Trazodone HCl) 100 Mg Tab 100 Mg PO HS Singulair (Montelukast Sodium) 10 Mg Tab 10 Mg PO DAILY Geodon (Ziprasidone) 80 Mg Cap 80 Mg PO HS Review of Systems Except as stated in HPI: all other systems reviewed are Neg Physical Exam Narrative GENERAL: Well-nourished, well-developed female patient, in no acute distress SKIN: Warm and dry. HEAD: Atraumatic. Normocephalic. EYES: Pupils equal and round. No scleral icterus. No injection or drainage. ENT: Mucosa pink and moist. Airway patent. NECK: Trachea midline. CARDIOVASCULAR: Regular rate. RESPIRATORY: No accessory muscle use. GASTROINTESTINAL: Flat. MUSCULOSKELETAL: Bilateral lower extremities supple and non-tense with 2+ pedal pulses and sensory intact; with full range of motion and 5/5 strength. Active dorsiflexion and extension of bilateral feet. Left straight leg raise is positive for low back pain. Sitting up in bed at 90. No obvious deformities. No clubbing. No cyanosis. No edema. BACK: No midline point tenderness on palpation of the lumbar spine. Reproducible tenderness to the left iliosacral area. No obvious deformities. NEUROLOGICAL: Awake and alert. Oriented 3. No obvious cranial nerve deficits. Motor grossly within normal limits. Normal speech. Moves all extremities. 5/5 strength to all extremities. Sensory intact. PSYCHIATRIC: Appropriate mood and affect; insight and judgment normal. Data Data Last Documented VS Vital Signs Date Time Temp Pulse Resp B/P Pulse Ox O2 Delivery O2 Flow Rate FiO2 03/26/16 11:57 98.1 95 15 150/87 98 Orders Orphenadrine Inj (Norflex Inj) (03/26/16 12:45) MDM Medical Decision Making Medical Screen Exam Complete: Yes Emergency Medical Condition: Yes Medical Record Reviewed: Yes Differential Diagnosis Sciatica, acute exacerbation of chronic low back pain, narcotic seeking Narrative Course 51-year-old female requesting refill on Lortab for chronic low back pain. Patient has acute exacerbation of left-sided chronic low back pain with sciatica. History of chronic back pain from 2007. Patient sees pain management and has follow-up appointment on April 07. Norflex administered in the ER. Deltasone and Robaxin prescribed for home. Patient is medically cleared and stable for discharge. Discussed reasons to return to the emergency department. Instructed patient to follow up with primary care provider. Patient agrees with treatment plan. The patients vital signs are stable and the patient is stable for outpatient follow-up and treatment. Patient discharged home, stable and in no acute distress. Diagnosis Primary Impression: Left-sided low back pain with sciatica Qualified Code: M54.42 - Chronic left-sided low back pain with left-sided sciatica Referrals: Primary Care Physician Patient Instructions: Acute Low Back Pain (ED), General Instructions, Sciatica (ED) Departure Forms: Tests/Procedures, Work Release Enter return to work date: Mar 28, 2016 Additional Instructions: Tylenol or ibuprofen as directed and as needed for pain Robaxin as prescribed and as needed for muscle spasms Heating pad and/or ice to affected area to reduce pain Avoid aggravating activities; increase activity as tolerated Follow-up with primary care provider Return to emergency department immediately with worsening of symptoms Med/Other Pt SpecificInfo: Prescription(s) given Scripts Methocarbamol (Robaxin)500 Mg [id number] Mg PO QID PRN (MUSCLE SPASM) #30 TAB Ref 0 Prov:Monse Burr 03/26/16 Prednisone (Deltasone)20 Mg Tab40 Mg PO DAILY 5 Days Ref 0 Prov:Monse Burr 03/26/16 Disposition: 01 DISCHARGE HOME Condition: Stable Monse Burr Mar 26, 2016 12:30
[2016-03-26] MEDS ORDERED: ORPHENADRINE INJ 60 MG/2 ML AMP IM ONE (12:45)
== END 2016-03-26 12:48 | disposition home or self-care (01) ==
LOC: NEPB 11:55
DX: M54.42 Lumbago with sciatica, left side (principal); J45.909 Unspecified asthma, uncomplicated; J44.9 Chronic obstructive pulmonary disease, unspecified; K21.9 Gastro-esophageal reflux disease without esophagitis
CPT/HCPCS: 96372; 99283; J2360

== ENCOUNTER 2016-04-09 14:48 | Emergency (ER) | payer MEDICAID ==
[~2016-04-09] VITALS: Ht 165.1 cm; Wt 60.0 kg
[~2016-04-09 14:48] MED LIST changes: +PRED-503 PO; +ROBA500T PO
[2016-04-09 14:57] VITALS: BP 157/85; PULSE 85; RESP 18; TEMP 98.5
--- NOTE | 2016-04-09 15:39 | PD ---
HPI . Low back pain Chief Complaint: Pain: Acute or Chronic Time Seen by Provider: 15:26 Travel History International Travel<30 days: No Contact w/Intl Traveler<30days: No Traveled to known affect area: No History of Present Illness HPI Patient presents to us via [facility] with the chief complaint of low back pain. This is her fourth visit here for same in the past month. She has also been seen at the [facility]. She reports she has been seen by her primary care provider. She states that the only medication that she is currently taking for her back his Lortab. Her discharge instructions from the [facility] indicates that she was given a prescription for gabapentin. She states that she took one dose but has not taken anymore because it did not help. She is complaining that she is known from the waist down. She is complaining of incontinence. PFSH Past Medical History Asthma: Yes Anxiety: Yes Depression: Yes Cancer: No Cardiovascular Problems: No COPD: Yes Diabetes: No Diminished Hearing: No Endocrine: No Gastrointestinal Disorders: No GERD: Yes Genitourinary: No Hepatitis: Yes (hx of HEP C 1999) Herniated Disk: Yes Hypertension: No Immune Disorder: No Implanted Vascular Access Dvce: No Musculoskeletal: Yes (DDD, FISHERING ON SPINE) Neurologic: No Psychiatric: Yes (PTSD) Reproductive: Yes (ENDOMETRIOSIS ) Respiratory: Yes (asthma) Immunizations Current: Yes Seizures: Yes (BACK WHEN SHE USED COCAINE) Thyroid Disease: No ?: Not Menopausal: Yes : 2 Para: 2 Past Surgical History Abdominal Surgery: Yes (colysectomy APPENDIX) Appendectomy: Yes Section: Yes (1991, 1994) Cholecystectomy: Yes (2007) Gynecologic Surgery: Yes (, hysterectomy ) Hysterectomy: Yes Tonsillectomy: Yes Other Surgery: Yes (2 RIGHT KNEE SX, 1 LEFT KNEE SX, BACK SX,FACE SX AND NOSE SX ) Social History Alcohol Use: No Tobacco Use: No Substance Use: No Allergies-Medications (Allergen,Severity, Reaction): Coded Allergies: Fentanyl (Verified Allergy, Severe, GI UPSET, 04/09/16) Motrin (Verified Allergy, Severe, Anaphylaxis, 04/09/16) Toradol (Verified Allergy, Severe, Anaphylaxis, 04/09/16) *MDRO Multi-Drug Resistant Organism (Verified Adverse Reaction, Unknown, Cleared, 3/4/17) MRSA (groin wound) - 09/2012 MRSA PCR Screen NEGATIVE - 02/11/2015, 02/13/2015 CLEARED BY INFECTION CONTROL Reported Meds & Prescriptions Reported Meds & Active Scripts Active Robaxin (Methocarbamol) 500 Mg Tab 500 Mg PO QID PRN Lortab (Hydrocodone-Acetaminophen) 5-325 Mg Tab 1-2 Tab PO Q6H PRN Reported Bupropion HCl ER 24 HR (Bupropion HCl) 150 Mg Tab 200 Mg PO DAILY Yi Allergy (Fexofenadine HCl) 180 Mg Tab 180 Mg PO DAILY Protonix (Pantoprazole Sodium) 40 Mg Tab 40 Mg PO DAILY Effexor (Venlafaxine HCl) 25 Mg Tab 25 Mg PO HS Trazodone (Trazodone HCl) 100 Mg Tab 100 Mg PO HS Singulair (Montelukast Sodium) 10 Mg Tab 10 Mg PO DAILY Geodon (Ziprasidone) 80 Mg Cap 80 Mg PO HS Review of Systems Except as stated in HPI: all other systems reviewed are Neg General / Constitutional: No: Fever, Chills Musculoskeletal: Positive: Pain (low back pain) Neurologic: Positive: Paresthesia, Incontinence Physical Exam Narrative GENERAL: The patient is sitting on the bed with her hips and knees flexed. She is basically yelling at every staff member who walks in her room. SKIN: Warm and dry. HEAD: Atraumatic. Normocephalic. EYES: Pupils equal and round. Extraocular motions are intact ENT: No nasal bleeding or discharge. Mucous membranes pink and moist. NECK: Trachea midline. Neck is supple. CARDIOVASCULAR: Regular rate and rhythm. RESPIRATORY: No accessory muscle use. MUSCULOSKELETAL: No obvious deformities. No edema. NEUROLOGICAL: Awake and alert. No obvious cranial nerve deficits. She is moving her legs without difficulty. Normal speech. PSYCHIATRIC: Appropriate mood and affect; insight and judgment normal. Data Data Last Documented VS Vital Signs Date Time Temp Pulse Resp B/P Pulse Ox O2 Delivery O2 Flow Rate FiO2 04/09/16 14:57 98.5 85 18 157/85 Orders ^ Saline Lock (04/09/16 15:41) Morphine Inj (Morphine Inj) (04/09/16 15:45) Lorazepam Inj (Ativan Inj) (04/09/16 15:45) Dexamethasone Inj (Decadron Inj) (04/09/16 15:45) Lorazepam Inj (Ativan Inj) (04/09/16 16:30) Morphine Inj (Morphine Inj) (04/09/16 16:30) Dexamethasone Inj (Decadron Inj) (04/09/16 16:30) MDM Medical Decision Making Medical Screen Exam Complete: Yes Emergency Medical Condition: Yes Medical Record Reviewed: Yes ( the patient was seen here and given prescriptions for Deltasone and Robaxin. On 03/22 she was not given any prescriptions. On 03/16 she had an MRI done here. I am attempting to obtain the records from the [facility]. Her MRI done here on 03/16 does show diffuse disease.) Differential Diagnosis Differential diagnosis includes but is not limited to muscular low back pain, DDD, spinal stenosis, epidural abscess, sciatica, kidney infection or stone. Narrative Course Patient presents to us via [facility] with the chief complaint of low back pain. This is her fourth visit here this past month for same. The patient has been noted by me and the nursing staff to be moving all 4 extremities without any apparent weakness or pain. Her physical exam is markedly different from her history. 4:30 PM The patient has started up beside her bed to assist the nurse and changing the linens. We are still awaiting her records from [facility]. Diagnosis Primary Impression: Chronic lower back pain Qualified Code: M54.42 - Chronic bilateral low back pain with bilateral sciatica Additional Instructions: See your primary care physician or ear pain management doctor for ongoing treatment. Disposition: 01 DISCHARGE HOME Condition: Stable Anel Quinteros MD Apr 09, 2016 15:39
[2016-04-09] MEDS ORDERED: MORPHINE SULFATE 4 MG/ML INJ IV PUSH ONE (15:45)
[2016-04-09] MEDS ORDERED: DEXAMETHASONE SOD PHOS 20 MG/5 ML VIAL IV PUSH ONE (15:45)
[2016-04-09] MEDS ORDERED: LORazepam 2 MG/ML VIAL IV PUSH ONE (15:45)
[2016-04-09] MEDS ORDERED: MORPHINE SULFATE 4 MG/ML INJ IM ONE (16:30)
[2016-04-09] MEDS ORDERED: LORazepam 2 MG/ML VIAL IM ONE (16:30)
[2016-04-09] MEDS ORDERED: DEXAMETHASONE SOD PHOS 20 MG/5 ML VIAL IM ONE (16:30)
== END 2016-04-09 17:30 | disposition home or self-care (01) ==
LOC: NEPA 14:48
DX: M54.5 Low back pain (principal); G89.29 Other chronic pain
CPT/HCPCS: 96374; 96375; 99283; J1100; J2060; J2270

== ENCOUNTER 2016-04-09 18:42 | Emergency (ER) | payer MEDICAID ==
[~2016-04-09] VITALS: Ht 165.1 cm; Wt 60.0 kg
[2016-04-09 18:43] VITALS: BP 147/70; PULSE 86; RESP 14; TEMP 98.1; O2SAT 98
--- NOTE | 2016-04-09 19:40 | PD ---
HPI . Back pain Chief Complaint: Numbness/Tingling Time Seen by Provider: 19:37 Travel History International Travel<30 days: No Contact w/Intl Traveler<30days: No Traveled to known affect area: No History of Present Illness HPI Patient presents back with back pain. She was just discharged. She never left the hospital. She checked right back in. PFSH Past Medical History Asthma: Yes Anxiety: Yes Depression: Yes Cancer: No Cardiovascular Problems: No COPD: Yes Diabetes: No Diminished Hearing: No Endocrine: No Gastrointestinal Disorders: No GERD: Yes Genitourinary: No Hepatitis: Yes (hx of HEP C 1999) Herniated Disk: Yes Hypertension: No Immune Disorder: No Implanted Vascular Access Dvce: No Musculoskeletal: Yes (DDD, FISHERING ON SPINE) Neurologic: No Psychiatric: Yes (PTSD) Reproductive: Yes (ENDOMETRIOSIS ) Respiratory: Yes (ASTHMA ) Immunizations Current: Yes Seizures: Yes (BACK WHEN SHE USED COCAINE) Thyroid Disease: No ?: Not Menopausal: Yes : 2 Para: 2 Past Surgical History Abdominal Surgery: Yes (colysectomy APPENDIX) Appendectomy: Yes Section: Yes (1991, 1994) Cholecystectomy: Yes (2007) Gynecologic Surgery: Yes (, hysterectomy ) Hysterectomy: Yes Tonsillectomy: Yes Other Surgery: Yes (2 RIGHT KNEE SX, 1 LEFT KNEE SX, BACK SX,FACE SX AND NOSE SX ) Social History Alcohol Use: No Tobacco Use: No Substance Use: No Allergies-Medications (Allergen,Severity, Reaction): Coded Allergies: Fentanyl (Verified Allergy, Severe, GI UPSET, 04/09/16) Motrin (Verified Allergy, Severe, Anaphylaxis, 04/09/16) Toradol (Verified Allergy, Severe, Anaphylaxis, 04/09/16) *MDRO Multi-Drug Resistant Organism (Verified Adverse Reaction, Unknown, Cleared, 04/09/16) MRSA (groin wound) - 09/2012 MRSA PCR Screen NEGATIVE - 02/11/2015, 02/13/2015 CLEARED BY INFECTION CONTROL Reported Meds & Prescriptions Reported Meds & Active Scripts Active Robaxin (Methocarbamol) 500 Mg Tab 500 Mg PO QID PRN Lortab (Hydrocodone-Acetaminophen) 5-325 Mg Tab 1-2 Tab PO Q6H PRN Reported Bupropion HCl ER 24 HR (Bupropion HCl) 150 Mg Tab 200 Mg PO DAILY Yi Allergy (Fexofenadine HCl) 180 Mg Tab 180 Mg PO DAILY Protonix (Pantoprazole Sodium) 40 Mg Tab 40 Mg PO DAILY Effexor (Venlafaxine HCl) 25 Mg Tab 25 Mg PO HS Trazodone (Trazodone HCl) 100 Mg Tab 100 Mg PO HS Singulair (Montelukast Sodium) 10 Mg Tab 10 Mg PO DAILY Geodon (Ziprasidone) 80 Mg Cap 80 Mg PO HS Review of Systems Except as stated in HPI: all other systems reviewed are Neg General / Constitutional: No: Fever Musculoskeletal: Positive: Myalgias, Pain (back pain) Neurologic: Positive: Weakness, Paresthesia, Incontinence Physical Exam Narrative GENERAL: Awake and alert and in no acute distress. She is very angry. SKIN: Warm and dry. CARDIOVASCULAR: Regular rate and rhythm. RESPIRATORY: No accessory muscle use. MUSCULOSKELETAL: No obvious deformities. No edema. She is moving her legs without any difficulty although she states that she is paralyzed. NEUROLOGICAL: Awake and alert. No obvious cranial nerve deficits. Motor grossly within normal limits. Normal speech. PSYCHIATRIC: Very angry. Data Data Last Documented VS Vital Signs Date Time Temp Pulse Resp B/P Pulse Ox O2 Delivery O2 Flow Rate FiO2 04/09/16 18:43 98.1 86 14 147/70 98 MDM Medical Decision Making Medical Screen Exam Complete: Yes Emergency Medical Condition: Yes Differential Diagnosis Differential diagnosis includes but is not limited to muscular low back pain, DDD, spinal stenosis, epidural abscess, sciatica, kidney infection or stone. Narrative Course Patient presents immediately after being discharged with low back pain. We have been observing the patient for a while and she is moving her legs without any difficulty. Called the triage nurse to discuss what we should do with this patient. He informed me that we should call security to have the patient escorted out and placed on a do not trespass log. Diagnosis Primary Impression: Chronic lower back pain Qualified Code: M54.5 - Chronic low back pain, unspecified back pain laterality, with sciatica presence unspecified Disposition: 01 DISCHARGE HOME Condition: Stable Anel Quinteros MD Apr 09, 2016 19:39
== END 2016-04-09 20:30 | disposition home or self-care (01) ==
LOC: NEPA 18:42
DX: M54.5 Low back pain (principal); G89.29 Other chronic pain; Z87.09 Personal history of other diseases of the respiratory system; Z86.59 Personal history of other mental and behavioral disorders; Z87.19 Personal history of other diseases of the digestive system; Z86.19 Personal history of other infectious and parasitic diseases; Z87.39 Personal history of other diseases of the musculoskeletal system and connective tissue; Z87.42 Personal history of other diseases of the female genital tract
CPT/HCPCS: 99283

== ENCOUNTER 2016-04-11 15:55 | Emergency (ER) | payer MEDICAID ==
[~2016-04-11] VITALS: Ht 165.1 cm; Wt 58.0 kg
[~2016-04-11 15:55] MED LIST changes: -PRED-503 PO
[2016-04-11 16:00] VITALS: BP 125/77; PULSE 88; RESP 20; TEMP 98.3; O2SAT 96
--- NOTE | 2016-04-11 19:17 | RADRPT ---
EXAM DATE/TIME: 04/11/2016 19:10 [facility] COMPARISON: HIP RIGHT (AP&LAT 2/3VWS) W AP PELVIS, April 22, 2015, 12:23. INDICATIONS : Left hip pain, fell MEDICAL HISTORY : Sciatica SURGICAL HISTORY : None. ENCOUNTER: Initial ACUITY: 2 weeks PAIN SCORE: 10/10 LOCATION: Left Hip FINDINGS: Examination of the left hip was performed with AP Pelvis. The primary and secondary trabecular patte rn of the femoral neck is intact. The hip joint is of normal width without significant sclerosis or bony hypertrophy. The acetabulum is grossly intact. CONCLUSION: Intact pelvis and left hip. Ab Buchanan MD on April 11, 2016 at 19:15 Board Certified Radiologist. This report was verified electronically.
[2016-04-11] MEDS ORDERED: CYCL1TAB29 PO (19:25)
--- NOTE | 2016-04-11 19:27 | PD ---
HPI Chief Complaint: Hip Injury Time Seen by Provider: 18:20 Travel History International Travel<30 days: No Contact w/Intl Traveler<30days: No Traveled to known affect area: No History of Present Illness HPI Patient is a 51-year-old female presenting to the emergency room evaluation of left hip pain. Patient states she fell on injuring her left hip. Since that time she's been unable to ambulate even with a walker. She reports a history of sciatica but states the pain is worse and it was before she fell. She denies any numbness or tingling but states she has pain that radiates down the back of her left leg. She states that her primary care provider cannot see her for 1 month. Reports pain is a 10 out of 10. She denies any head injury, loss of consciousness, chest pain, abdominal pain. PFSH Past Medical History Asthma: Yes Anxiety: Yes Depression: Yes Cancer: No Cardiovascular Problems: No COPD: Yes Diabetes: No Diminished Hearing: No Endocrine: No Gastrointestinal Disorders: No GERD: Yes Genitourinary: No Hepatitis: Yes (hx of HEP C 1999) Herniated Disk: Yes Hypertension: No Immune Disorder: No Implanted Vascular Access Dvce: No Musculoskeletal: Yes (DDD, FISHERING ON SPINE) Neurologic: No Psychiatric: Yes (PTSD) Reproductive: Yes (ENDOMETRIOSIS ) Respiratory: Yes (ASTHMA ) Immunizations Current: Yes Seizures: Yes (BACK WHEN SHE USED COCAINE) Thyroid Disease: No ?: Not Menopausal: Yes : 2 Para: 2 Past Surgical History Abdominal Surgery: Yes (colysectomy APPENDIX) Appendectomy: Yes Section: Yes (1991, 1994) Cholecystectomy: Yes (2007) Gynecologic Surgery: Yes (, hysterectomy ) Hysterectomy: Yes Tonsillectomy: Yes Other Surgery: Yes (2 RIGHT KNEE SX, 1 LEFT KNEE SX, BACK SX,FACE SX AND NOSE SX ) Social History Alcohol Use: No Tobacco Use: No Substance Use: No Allergies-Medications (Allergen,Severity, Reaction): Coded Allergies: Fentanyl (Verified Allergy, Severe, GI UPSET, 04/11/16) Motrin (Verified Allergy, Severe, Anaphylaxis, 04/11/16) Toradol (Verified Allergy, Severe, Anaphylaxis, 04/11/16) *MDRO Multi-Drug Resistant Organism (Verified Adverse Reaction, Unknown, Cleared, 04/11/16) MRSA (groin wound) - 09/2012 MRSA PCR Screen NEGATIVE - 02/11/2015, 02/13/2015 CLEARED BY INFECTION CONTROL Reported Meds & Prescriptions Reported Meds & Active Scripts Active Flexeril (Cyclobenzaprine HCl) 10 Mg Tab 10 Mg PO TID PRN 7 Days Robaxin (Methocarbamol) 500 Mg Tab 500 Mg PO QID PRN Lortab (Hydrocodone-Acetaminophen) 5-325 Mg Tab 1-2 Tab PO Q6H PRN Reported Bupropion HCl ER 24 HR (Bupropion HCl) 150 Mg Tab 200 Mg PO DAILY Yi Allergy (Fexofenadine HCl) 180 Mg Tab 180 Mg PO DAILY Protonix (Pantoprazole Sodium) 40 Mg Tab 40 Mg PO DAILY Effexor (Venlafaxine HCl) 25 Mg Tab 25 Mg PO HS Trazodone (Trazodone HCl) 100 Mg Tab 100 Mg PO HS Singulair (Montelukast Sodium) 10 Mg Tab 10 Mg PO DAILY Geodon (Ziprasidone) 80 Mg Cap 80 Mg PO HS Review of Systems Except as stated in HPI: all other systems reviewed are Neg Musculoskeletal: Positive: Myalgias, Pain Neurologic: No: Focal Abnormalities, Sensory Disturbance Physical Exam Narrative GENERAL: Well-developed, well-nourished, alert female. Resting comfortably in no acute distress. SKIN: Warm and dry. HEAD: Atraumatic. Normocephalic. EYES: Pupils equal and round. No scleral icterus. No injection or drainage. ENT: No nasal bleeding or discharge. Mucous membranes pink and moist. NECK: Trachea midline. No JVD. CARDIOVASCULAR: Regular rate and rhythm. No murmur appreciated. RESPIRATORY: No accessory muscle use. Clear to auscultation. Breath sounds equal bilaterally. GASTROINTESTINAL: Abdomen soft, non-tender, nondistended. Hepatic and splenic margins not palpable. MUSCULOSKELETAL: No obvious deformities. No clubbing. No cyanosis. No edema. Bilateral leg lift does not elicit pain in the lower back. No spinal tenderness noted, no step-off. Positive pedal pulses, brisk less than 3 second capillary refill. Tenderness to palpation in right paraspinal musculature in the lumbar region and over her SI joint. No leg length discrepancy noted. NEUROLOGICAL: Awake and alert. No obvious cranial nerve deficits. Motor grossly within normal limits. Normal speech. PSYCHIATRIC: Appropriate mood and affect; insight and judgment normal. Data Data Last Documented VS Vital Signs Date Time Temp Pulse Resp B/P Pulse Ox O2 Delivery O2 Flow Rate FiO2 04/11/16 16:00 98.3 88 20 125/77 96 Room Air Orders Hip, Uni(Ap&Lat) W Ap Pelvis (04/11/16 ) MDM Medical Decision Making Medical Screen Exam Complete: Yes Emergency Medical Condition: Yes Interpretation(s) Vital Signs Date Time Temp Pulse Resp B/P Pulse Ox O2 Delivery O2 Flow Rate FiO2 04/11/16 16:00 98.3 88 20 125/77 96 Room Air Differential Diagnosis Hip fracture versus dislocation versus sprain versus strain versus sciatica versus malingering Narrative Course Patient is a 51-year-old female presenting to the emergency department for evaluation of low back pain and left hip pain. Patient reports an allergy to Toradol however she's been taking ibuprofen at home for the pain. Patient has been to the emergency department multiple times with the same complaint, in fact she was here twice on April 09. She was discharged on that day, never left the ER and attempted to check back in. Patient has been evaluated since she fell on . She's able to move all 4 extremities with no pain on examination. Imaging was performed of the left hip to rule out acute fracture since she stated that she did fall onto that hip. Imaging of the left hip was negative for acute abnormality. At this time patient is going to be discharged home, she should follow-up with her primary doctor or seek help with pain management or physical therapy. To apply warm moist heat to affected area, continue range of motion exercises, and avoid bed rest. She is encouraged to return to emergency Department if she should experience any new or worsening symptoms. With patient was advised of her imaging findings and the fact that she was being discharged she started yelling stating that she could not walk. She states that she wanted to see a doctor. Patient was told that she would be able to see a doctor soon as a bed became available. She was allowed to wait in TR5 instead of going to the waiting room, she began to yell and scream stating that she wanted to see a doctor, she wanted to see a doctor. I went in to reevaluate patient, she stated that she did not want to be "locked up in this room anymore". She didn't understand why she wasn't going to the back faster. She was advised that she would get back as quickly as possible. She then preferred to wait in the waiting room. A wheelchair was brought to the bedside, patient was able to stand up on her own and get in the wheelchair. She was wheeled to the waiting room where she is waiting for further evaluation by a doctor. Diagnosis Primary Impression: Left hip pain Additional Impression: Left-sided low back pain with sciatica Qualified Code: M54.42 - Chronic left-sided low back pain with left-sided sciatica Referrals: Primary Care Physician 2 days Patient Instructions: General Instructions, Hip Pain (GEN), Sciatica (ED) Additional Instructions: Apply warm moist heat to the affected area, continue range of motion exercises, avoid bed rest, avoid exacerbating activities Follow-up with your primary doctor Return to emergency department for any new or worsening symptoms Med/Other Pt SpecificInfo: Prescription(s) given Scripts Cyclobenzaprine (Flexeril)10 Mg Tab10 Mg PO TID PRN (MUSCLE SPASM) 7 Days Ref 0 Prov:Yecenia Tran 04/11/16 Disposition: 01 DISCHARGE HOME Condition: Stable Yecenia Tran Apr 11, 2016 19:26
[2016-04-11 20:45] VITALS: BP 135/91; PULSE 80; RESP 16; O2SAT 100
--- NOTE | 2016-04-11 21:14 | PD ---
Physical Exam Date Seen by Provider: Apr 11, 2016 Time Seen by Provider: 21:00 Narrative I, Dr. You, have reviewed the advance practice practitioner's documentation and am in agreement, met with the patient face to face, made the diagnosis, and the medical decision making was done by me. *My assessment and Findings: Patient seen by PA initially, asked to see me, has history of chronic back pain and sciatica, has been in the ER several times for similar symptoms, here because she states that she fell on and has having left hip pain, states that she has pain with walking. She denies any incontinence, fevers, or any other issues. She states that she has had a lapse in ability to see her pain management doctor because she needs a new referral from her primary care doctor. She states that she had a prescription for Lortab tens from her primary care physician, Dr. Becker, and it ran out today. Please see mid-level note for further details. GENERAL: Well-nourished, well-developed middle age white female patient sitting up in bed, not in acute distress, awake and oriented 3.. SKIN: Warm and dry. HEAD: Normocephalic. EYES: No scleral icterus. No injection or drainage. NECK: Supple, trachea midline. CARDIOVASCULAR: Regular rate and rhythm without murmurs, gallops, or rubs. RESPIRATORY: Breath sounds equal bilaterally. No accessory muscle use. GASTROINTESTINAL: Abdomen soft, non-tender, nondistended. MUSCULOSKELETAL: No cyanosis, or edema. BACK: Tenderness on palpation of the left sacral area going down the left buttocks without obvious deformity. No CVA tenderness. No midline tenderness. No obvious deformities. No saddle anesthesia. EXTREMITIES: No clubbing, cyanosis, or edema. No joint tenderness, effusion, or edema noted. Last 24 hours Impressions Hip and Pelvis X-Ray 04/11/16 0000 Signed Impressions: Service Date/Time: Monday, April 11, 2016 19:10 - CONCLUSION: Intact pelvis and left hip. Ab Buchanan MD X-rays did not show any signs of acute fractures. At this point, this is acute on chronic pain. Patient has been offered Lortabs and Solu-Medrol for further pain relief. Flexeril was given as a prescription. Planning to release the patient with follow-up to her primary care physician and pain management for any ongoing issues. Return for new issues as needed. However, the patient is requesting more for pain. She should follow-up with primary care physician for this further pain management. Data Data Last Documented VS Vital Signs Date Time Temp Pulse Resp B/P Pulse Ox O2 Delivery O2 Flow Rate FiO2 04/11/16 20:45 80 16 135/91 100 04/11/16 16:00 98.3 Room Air Orders Hip, Uni(Ap&Lat) W Ap Pelvis (04/11/16 ) Methylprednisolone So Succ Inj (Solumedr (04/11/16 21:15) Acetamin-Hydrocod 325-5 Mg ([place] 5-325 (04/11/16 21:15) MDM Medical Record Reviewed: Yes Supervised Visit with CINDY: Yes Diagnosis Primary Impression: Left hip pain Additional Impression: Left-sided low back pain with sciatica Qualified Code: M54.42 - Chronic left-sided low back pain with left-sided sciatica Referrals: Primary Care Physician 2 days Patient Instructions: General Instructions, Sciatica (ED), Hip Pain (GEN) Additional Instruction: Apply warm moist heat to the affected area, continue range of motion exercises, avoid bed rest, avoid exacerbating activities Follow-up with your primary doctor Return to emergency department for any new or worsening symptoms Scripts Cyclobenzaprine (Flexeril)10 Mg Tab10 Mg PO TID PRN (MUSCLE SPASM) 7 Days Ref 0 Prov:Yecenia rTan 04/11/16 Disposition: 01 DISCHARGE HOME Condition: Stable Joesph You MD Apr 11, 2016 21:14
[2016-04-11] MEDS ORDERED: methylPREDNISolone SOD SUCC 125 MG/2 ML VIAL IM ONE (21:15)
[2016-04-11] MEDS ORDERED: ACETAMINOPHEN/HYDROcodone 325 MG/5 MG TAB PO ONE (21:15)
[2016-04-11 21:38] VITALS: BP 135/91
== END 2016-04-11 22:00 | disposition home or self-care (01) ==
LOC: NEPC 15:55
DX: M25.552 Pain in left hip (principal); M54.42 Lumbago with sciatica, left side; G89.29 Other chronic pain
CPT/HCPCS: 73502; 96372; 99283; J2930

== ENCOUNTER 2016-04-28 04:13 | Emergency (ER) | payer MEDICAID ==
[~2016-04-28 04:13] MED LIST changes: +CYCL1TAB29 PO
[2016-04-28 04:16] VITALS: BP 160/88; PULSE 123; RESP 20; TEMP 97.9; O2SAT 98
[2016-04-28 07:44] VITALS: BP 164/96; PULSE 115; RESP 22; TEMP 98.1; O2SAT 98
[2016-04-28 08:23] LABS: AUTOMATED NEUTROPHIL # 7.5 TH/MM3 (1.8-7.7); BASOPHIL % 0.2 % (0.0-2.0); EOSINOPHIL % 0.2 % (0.0-4.0); HEMATOCRIT 30.7 % (35.0-46.0); LYMPH % 23.6 % (9.0-44.0); LYMPHOCYTE # 2.4 TH/MM3 (1.0-4.8); MEAN CELL VOLUME 74.3 FL (80.0-100.0); MEAN CORPUSCULAR HEMOGLOBIN 24.8 PG (27.0-34.0); MEAN CORPUSCULAR HGB CONC 33.3 % (32.0-36.0); MONO % 3.9 % (0.0-8.0); NEUT % 72.1 % (16.0-70.0); PLATELET COUNT 554 TH/MM3 (150-450); RED BLOOD COUNT 4.13 MIL/MM3 (4.00-5.30); RED CELL DISTRIBUTION WIDTH 16.5 % (11.6-17.2); WHITE BLOOD COUNT 10.3 TH/MM3 (4.0-11.0)
[2016-04-28 08:27] LABS: HEMO FLAGS AUTO DIFF
[2016-04-28 08:39] LABS: BICARBONATE 15.2 MEQ/L (21.0-32.0); POTASSIUM 3.8 MEQ/L (3.5-5.1)
[2016-04-28] MEDS ORDERED: VENL100T PO (08:42)
--- NOTE | 2016-04-28 08:45 | PD ---
HPI Chief Complaint: Pain: Acute or Chronic Time Seen by Provider: 08:44 Travel History International Travel<30 days: No Contact w/Intl Traveler<30days: No Traveled to known affect area: No History of Present Illness HPI 51-year-old female came to the emergency room with history of severe lower back pain. Patient says that she had a laminectomy done on April 15 in [facility] by Dr. Singh. She was discharged on the or so. As per her the surgeon told her that during the surgery he found a pus pocket and because of which she was discharged home on a PICC line to get antibiotic. Patient says that the home health care nurse did not come in for past 3 days because her insurance would not approve of home healthcare delivered IV antibiotic. The nurse educated her to give the antibiotic herself but patient is afraid to do with and hasn't done it. Her pain got worse. She went to [facility] emergency room last night but was told that the wait was extensive and she would not be seen till the afternoon. She decided to come to this emergency room. Patient has been screaming in the waiting room because of the pain. She was tachycardic when she was triaged. Rest of the vital signs were stable. She seems very anxious and uncomfortable. Orders were initiated at triage. By the time I saw her the blood test results were back. Her white blood cell count and lactic acid were within normal limit. Patient kept asking for pain medication. [facility] Past Medical History Narrative Medical List of her past medical, surgical, social and family history was reviewed from the nursing note. Asthma: Yes Anxiety: Yes Depression: Yes Cancer: No Cardiovascular Problems: No COPD: Yes Diabetes: No Diminished Hearing: No Endocrine: No Gastrointestinal Disorders: No GERD: Yes Genitourinary: No Hepatitis: Yes (hx of HEP C 1999) Herniated Disk: Yes Hypertension: No Immune Disorder: No Implanted Vascular Access Dvce: No Musculoskeletal: Yes (DDD, FISHERING ON SPINE) Neurologic: No Psychiatric: Yes (PTSD) Reproductive: Yes (ENDOMETRIOSIS ) Respiratory: Yes (ASTHMA) Immunizations Current: Yes Seizures: Yes (BACK WHEN SHE USED COCAINE) Thyroid Disease: No Menopausal: Yes : 2 Para: 2 Past Surgical History Abdominal Surgery: Yes (colysectomy APPENDIX) Appendectomy: Yes Section: Yes (1991, 1994) Cholecystectomy: Yes (2007) Gynecologic Surgery: Yes (, hysterectomy ) Hysterectomy: Yes Tonsillectomy: Yes Other Surgery: Yes (2 RIGHT KNEE SX, 1 LEFT KNEE SX, BACK SX,FACE SX AND NOSE SX ) Social History Alcohol Use: No Tobacco Use: No Substance Use: No Allergies-Medications (Allergen,Severity, Reaction): Coded Allergies: Fentanyl (Verified Allergy, Severe, GI UPSET, 04/28/16) Motrin (Verified Allergy, Severe, Anaphylaxis, 04/28/16) Toradol (Verified Allergy, Severe, Anaphylaxis, 04/28/16) *MDRO Multi-Drug Resistant Organism (Verified Adverse Reaction, Unknown, Cleared, 04/28/16) MRSA (groin wound) - 09/2012 MRSA PCR Screen NEGATIVE - 02/11/2015, 02/13/2015 CLEARED BY INFECTION CONTROL Comments List of her allergies reviewed from the nursing note. Reported Meds & Prescriptions Reported Meds & Active Scripts Active Flexeril (Cyclobenzaprine HCl) 10 Mg Tab 10 Mg PO TID PRN 7 Days Lortab (Hydrocodone-Acetaminophen) 5-325 Mg Tab 1-2 Tab PO Q6H PRN Reported Effexor (Venlafaxine HCl) 100 Mg Tab 225 Mg PO HS Bupropion HCl ER 24 HR (Bupropion HCl) 150 Mg Tab 200 Mg PO DAILY Yi Allergy (Fexofenadine HCl) 180 Mg Tab 180 Mg PO DAILY Protonix (Pantoprazole Sodium) 40 Mg Tab 40 Mg PO DAILY Trazodone (Trazodone HCl) 100 Mg Tab 100 Mg PO HS Singulair (Montelukast Sodium) 10 Mg Tab 10 Mg PO DAILY Geodon (Ziprasidone) 80 Mg Cap 80 Mg PO HS Narrative Medication List of her home medications reviewed from the nursing note. Review of Systems Except as stated in HPI: all other systems reviewed are Neg Physical Exam Narrative GENERAL: Awake, alert, anxious, severe distress from pain SKIN: Warm and dry. HEAD: Atraumatic. Normocephalic. EYES: Pupils equal and round. No scleral icterus. No injection or drainage. ENT: No nasal bleeding or discharge. Mucous membranes pink and moist. NECK: Trachea midline. No JVD. CARDIOVASCULAR: Regular rate and rhythm. No murmur appreciated. RESPIRATORY: No accessory muscle use. Clear to auscultation. Breath sounds equal bilaterally. GASTROINTESTINAL: Abdomen soft, non-tender, nondistended. Hepatic and splenic margins not palpable. MUSCULOSKELETAL: No obvious deformities. No clubbing. No cyanosis. No edema. NEUROLOGICAL: Awake and alert. No obvious cranial nerve deficits. Motor grossly within normal limits. Normal speech. PSYCHIATRIC: Appropriate mood and affect; insight and judgment normal. Data Data Last Documented VS Orders Complete Blood Count With Diff (04/28/16 07:45) Basic Metabolic Panel (Bmp) (04/28/16 07:45) Lactic Acid (04/28/16 07:45) Blood Culture (04/28/16 07:45) Electrocardiogram (04/28/16 ) Morphine Inj (Morphine Inj) (04/28/16 09:00) Mri L Spine W&W/O Contrast (04/28/16 ) Lorazepam Inj (Ativan Inj) (04/28/16 10:00) Gadodiamide Pf Inj (Omniscan Pf Inj) (04/28/16 11:33) Piperacil-Tazo 4.5 Gm Premix (Zosyn 4.5 (04/28/16 12:15) Vancomycin Inj (Vancomycin Inj) (04/28/16 12:15) Morphine Inj (Morphine Inj) (04/28/16 12:45) Radiology Film Requests (04/28/16 ) Cefepime Inj (Maxipime Inj) (04/28/16 13:45) Morphine Inj (Morphine Inj) (04/28/16 16:45) Labs MDM Medical Decision Making Medical Screen Exam Complete: Yes Emergency Medical Condition: Yes Medical Record Reviewed: Yes Differential Diagnosis Epidural abscess, epidural hematoma, radiculopathy, spinal stenosis Narrative Course 10:04 AM patient is getting IV fluid bolus. She was medicated for pain. She will go for MRI. She was asking for some anxiety medications that she is claustrophobic. Ativan was ordered. MRI waiting to be done and resulted. 12:06 PM MRI report came back. In fact the radiologist Dr. Rivera call me personally to let me know that patient has a large epidural abscess at L4-L5 with osteomyelitis of L4-L5. I have ordered IV Zosyn and vancomycin for this patient. I put a call out for Dr. Singh the neurosurgeon from [facility]. Waiting for him to call back. Since he had done the surgery less than a month ago I would expect him to accept this patient with a possible transfer to [facility]. 12:42 PM I heard back from Dr. Ramos whose partner with Dr. Singh and after hearing this he wanted the patient to be transferred to [facility]. He wanted the patient to be admitted under medical service by the hospitalist. He agreed with the antibiotics. There has been a call put out through the [facility] transfer center and waiting for the hospitalist to call back. I was made aware by the transfer center at that currently there are no beds even if the patient gets excepted and the patient will have to wait in this ER to the bed is available. 1:29 PM I just heard from Dr. Andres who is the hospitalist at [facility]. She has accepted the patient. I was told by the transfer center that currently there is no bed and they will call us as soon as a bed is available. [facility] did make Dr. Ramos the neurosurgeon aware of this. He is aware the patient is in our emergency room. There is a bed available for the hospital. I we will give her a dose of cefepime as well in the meanwhile since I was told that cefepime was the antibiotic she was sent home on. COBRA paperwork has been initiated. Critical Care Narrative Aggregate critical care time was 60 minutes. Time to perform other separately billable procedures was not included in the critical care time. My time did not include minutes spent treating any other patients simultaneously or on activities that did not directly contribute to the patient's treatment. The services I provided to this patient were to treat and/or prevent clinically significant deterioration that could result in: Epidural abscess, IV antibiotic, transfer for continuity of neurosurgical care I provided critical care services requiring my management, as noted below: Chart data review, documentation time, medication orders and management, vital sign assessments/reviewing monitor data, ordering and reviewing lab tests, ordering and interpreting/reviewing x-rays and diagnostic studies, care of the patient and discussion of the patient with the admitting physicians. Procedures EKG Prior to Arrival: No Physician Communication Physician Communication Dr. Ramos, Dr. Andres Diagnosis Primary Impression: Spinal epidural abscess Additional Impressions: Osteomyelitis of lumbar spine History of lumbar laminectomy for spinal cord decompression Disposition: 70 TRANSFER TO OTHER FACILITY Cathleen Haider MD Apr 28, 2016 08:44 Carbon Dioxide Level 15.2 MEQ/L Anion Gap 18 MEQ/L Blood Urea Nitrogen 8 MG/DL Creatinine 0.57 MG/DL Estimat Glomerular Filtration 111 ML/MIN Rate Random Glucose 73 MG/DL Lactic Acid Level 0.9 mmol/L Calcium Level 9.5 MG/DL [facility] Medical Decision Making Medical Screen Exam Complete: Yes Emergency Medical Condition: Yes Medical Record Reviewed: Yes Differential Diagnosis Epidural abscess, epidural hematoma, radiculopathy, spinal stenosis Narrative Course 10:04 AM patient is getting IV fluid bolus. She was medicated for pain. She will go for MRI. She was asking for some anxiety medications that she is claustrophobic. Ativan was ordered. MRI waiting to be done and resulted. 12:06 PM MRI report came back. In fact the radiologist Dr. Rivera call me personally to let me know that patient has a large epidural abscess at L4-L5 with osteomyelitis of L4-L5. I have ordered IV Zosyn and vancomycin for this patient. I put a call out for Dr. Signh the neurosurgeon from a [facility]. Waiting for him to call back. Since he had done the surgery less than a month ago I would expect him to accept this patient with a possible transfer to [facility]. 12:42 PM I heard back from Dr. Ramos whose partner with Dr. Singh and after hearing this. 1:29 PM I just heard from Dr. Andres who is the hospitalist at [facility]. She has accepted the patient. I was told by the transfer center that currently there is no bed and they will call us as soon as a bed is available. Transfer center did make Dr. Ramos the neurosurgeon aware of this. He is aware the patient is in our emergency room. There is a bed available for the hospital. I we will give her a dose of cefepime as well in the meanwhile since I was told that cefepime was the antibiotic she was sent home on. COBRA paperwork has been initiated. Procedures EKG Prior to Arrival: No Physician Communication Physician Communication Dr. Ramos, Dr. Andres Diagnosis Primary Impression: Spinal epidural abscess Additional Impressions: Osteomyelitis of lumbar spine History of lumbar laminectomy for spinal cord decompression Disposition: 70 TRANSFER TO OTHER FACILITY Cathleen Haider MD Apr 28, 2016 08:44
[2016-04-28 08:47] VITALS: BP 174/97; PULSE 106; RESP 20; O2SAT 98
[2016-04-28 08:54] LABS: OVALOCYTES 1+ (NORMAL); PLATELET ESTIMATE SMEAR HIGH (NORMAL); PLATELET MORPHOLOGY NORMAL (NORMAL); SCAN/DIFF AUTO DIFF CONFIRMED
[2016-04-28] MEDS ORDERED: MORPHINE SULFATE 8 MG/ML INJ IV PUSH ONE (09:00)
[2016-04-28] MEDS ORDERED: LORazepam 2 MG/ML VIAL IV PUSH ONE (10:00)
[2016-04-28] MEDS ORDERED: GADODIAMIDE PF 287 MG/ML 10 ML VIAL (for RAD MRI) IV ONE (11:33)
[2016-04-28 11:44] VITALS: BP 132/77; PULSE 98; RESP 18; O2SAT 98
--- NOTE | 2016-04-28 12:13 | RADRPT ---
EXAM DATE/TIME: 04/28/2016 10:51 [facility] COMPARISON: MRI LUMBAR SPINE W & W/O CONTRAST, March 16, 2016, 13:46. INDICATIONS : Radiculopathy. CONTRAST: 10 cc Omniscan (gadodiamide) IV MEDICAL HISTORY : Post traumatic stress disorder, chronic back pain and asthma. SURGICAL HISTORY : Cholecystectomy. section. Back surgery, foot surgery, knee surgery and septum surgery. ENCOUNTER: Subsequent ACUITY: 1 month PAIN SCORE: 5/10 LOCATION: Lower back. TECHNIQUE: Multiplanar multisequence MRI of the lumbar spine was performed with and without contrast. FINDINGS: Sagittal T1 pre and post contrast, T2 and inversion recovery images show marked interval change from the March 2016 exam. There is diffuse edema and enhancement in both the L4 and L5 vertebral shoaib s. In addition, enhancement extends into the anterior epidural space and portions of the interverteb ral disc concerning for a discitis and inflammatory phlegmon/epidural abscess. This does result in s ignificant spinal stenosis at this level. There is a rim enhancing subcutaneous fluid collection haresh suring 6 cm x 1 cm in diameter which extends from the L2 through the L5 vertebral bodies in the subcu taneous tissues posterior to the spinous processes of the aforementioned lumbar vertebrae. Axial evy ges are somewhat limited by motion artifact. T12-L1: The thecal sac has a normal diameter. No evidence of disc bulge or protrusion. The neural foramina are patent bilaterally. L1-L2: The thecal sac has a normal diameter. No evidence of disc bulge or protrusion. The neural foramina are patent bilaterally. L2-L3: The thecal sac has a normal diameter. No evidence of disc bulge or protrusion. The neural foramina are patent bilaterally. L3-L4: The thecal sac has a normal diameter. No evidence of disc bulge or protrusion. The neural foramina are patent bilaterally. L4-L5: Enhancement of both the L4 and L5 vertebral bodies. Epidural encroachment anteriorly is characterist ic of an inflammatory phlegmon/epidural abscess. Again, this does result in significant stenosis. T here is associated total laminectomy at the L4 level. L5-S1: Abnormal enhancement of L5 vertebral body. Spinal canal and neural foramina appear to be adequate. . CONCLUSION: 1. Abnormal signal intensity throughout the L4 and L5 vertebral bodies with an increased T2 signal a nd diffuse enhancement concerning for osteomyelitis in both the L4 and L5 vertebrae. 2. Enhancement extends into the anterior epidural space and portions of the intervertebral disc. Findings are concerning for a discitis and epidural phlegmon/abscess. This does result in significan t spinal stenosis at the L4-5 level but there is a decompressive laminectomy at L4. 3. Rim enhancing 6 cm x 1 cm fluid collection in the subcutaneous tissues posterior to the L2 throug h L5 vertebral bodies. This may represent a postoperative seroma or abscess. 4. Results were called to Dr. Haider in the ED at the time of this dictation. Justin Rivera MD on April 28, 2016 at 11:49 Board Certified Radiologist. This report was verified electronically.
[2016-04-28] MEDS ORDERED: PIPERACIL-TAZO 4.5 GM PREMIX 100 ML IV ONE (12:15)
[2016-04-28] MEDS ORDERED: VANCOMYCIN INJ 1,000 MG in SODIUM CHLOR 0.9% 250 ML INJ 250 ML IV ONE (12:15)
[2016-04-28] MEDS ORDERED: MORPHINE SULFATE 4 MG/ML INJ IV PUSH ONE ×2 (12:45→16:45)
[2016-04-28] MEDS ORDERED: CEFEPIME INJ 2,000 MG in SODIUM CHLORIDE 0.9% INJ 100 ML IV ONE (13:45)
[2016-04-28 16:42] VITALS: BP 146/83; PULSE 100; RESP 18; O2SAT 98
[2016-04-28 17:58] VITALS: BP 129/74
--- NOTE | 2016-04-28 21:05 | EKG ---
Date Performed: 04/28/2016 Time Performed: 07:50:27 PTAGE: 51 years EKG: SINUS TACHYCARDIA When compared to previos tracing, sinus rate has increased. Baseline lorena fact limits accurate interpretation. ABNORMAL RHYTHM ECG PREVIOUS TRACING : 02/03/2016 13.59 DOCTOR: Fitz Henderson Interpretating Date/Time 04/28/2016 21:03:31
== END 2016-04-28 18:01 | disposition short-term general hospital (02) ==
LOC: NEPC 04:13
DX: G06.1 Intraspinal abscess and granuloma (principal); M46.26 Osteomyelitis of vertebra, lumbar region; R00.0 Tachycardia, unspecified
CPT/HCPCS: 72158; 80048; 83605; 85025; 87040; 93005; 96374; 96375; 96376; 99285; A9579; J0692; J2060; J2270; J2543; J3370; J7050

== ENCOUNTER 2016-12-14 12:53 | Emergency (ER) | payer MEDICAID ==
[~2016-12-14 12:53] MED LIST changes: +CYCL10TA PO; -CYCL1TAB29 PO; -ROBA500T PO; +VENL100T PO; -VENL25TA PO
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
[2016-12-14] MEDS ORDERED: PERC10TA27 PO (13:43)
[2016-12-14] MEDS ORDERED: ACETAMINOPHEN/HYDROcodone 325 MG/5 MG TAB PO ONE (13:45)
== END 2016-12-14 14:53 | disposition home or self-care (01) ==
LOC: PHED 12:53
DX: M79.605 Pain in left leg (principal); M79.604 Pain in right leg; M79.2 Neuralgia and neuritis, unspecified
CPT/HCPCS: 99283

== ENCOUNTER 2016-12-19 16:15 | Emergency (ER) | payer MEDICAID ==
[~2016-12-19] VITALS: Ht 165.1 cm; Wt 60.8 kg
[~2016-12-19 16:15] MED LIST changes: +PERC10TA27 PO
[2016-12-19 16:21] VITALS: BP 129/81; PULSE 83; RESP 16; TEMP 98.5; O2SAT 99
[2016-12-19] MEDS ORDERED: BACL10TA PO (16:35)
[2016-12-19] MEDS ORDERED: LIDO1PAD52 TOPICAL (16:35)
--- NOTE | 2016-12-19 16:39 | PD ---
HPI Chief Complaint: Pain: Acute or Chronic Time Seen by Provider: 16:33 Travel History International Travel<30 days: No Contact w/Intl Traveler<30days: No Traveled to known affect area: No History of Present Illness HPI Patient was examined in the presence of a female nurse at all times. This is a 51-year-old female with chronic lower back pain and bilateral leg pain from previous epidural abscess. She is presenting requesting pain medicine. She reports that her primary care physician is in the process of getting her placed into a assisted-living facility on a full-time basis. She reports that she was previously living in a assisted she was receiving morphine which helped control her pain however she is not currently able to get it. She has no point with her primary care physician in 3 days and would like some sort of pain control until then. Symptoms are constant, aggravated by movement, no aggravating or alleviating factors. Denies any acute issue. Denies ears, chills, incontinence. She was seen here in December 14 for similar complaints and was prescribed 30 tablets of Percocet. PFSH Past Medical History Asthma: Yes Anxiety: Yes Depression: Yes Cancer: No Cardiovascular Problems: No COPD: Yes Diabetes: No Diminished Hearing: No Endocrine: No Gastrointestinal Disorders: No GERD: Yes Genitourinary: No Hepatitis: Yes (hx of HEP C 1999) Herniated Disk: Yes Hypertension: No Immune Disorder: No Implanted Vascular Access Dvce: No Musculoskeletal: Yes (DDD, FISHERING ON SPINE) Neurologic: No Psychiatric: Yes (PTSD) Reproductive: Yes (ENDOMETRIOSIS ) Respiratory: Yes (ASTHMA) Immunizations Current: Yes Seizures: Yes (BACK WHEN SHE USED COCAINE) Thyroid Disease: No ?: Not Menopausal: Yes : 2 Para: 2 Past Surgical History Abdominal Surgery: Yes (colysectomy APPENDIX) Appendectomy: Yes Section: Yes (1991, 1994) Cholecystectomy: Yes (2007) Gynecologic Surgery: Yes (, hysterectomy ) Hysterectomy: Yes Tonsillectomy: Yes Other Surgery: Yes (2 RIGHT KNEE SX, 1 LEFT KNEE SX, BACK x2 SX,FACE SX AND NOSE SX ) Social History Alcohol Use: No Tobacco Use: No Substance Use: No Allergies-Medications (Allergen,Severity, Reaction): Coded Allergies: fentanyl (Unverified Allergy, Severe, GI UPSET, 12/19/16) ibuprofen (Unverified Allergy, Severe, Anaphylaxis, 12/19/16) ketorolac (Unverified Allergy, Severe, Anaphylaxis, 12/19/16) *MDRO Multi-Drug Resistant Organism (Verified Adverse Reaction, Unknown, Cleared, 12/19/16) MRSA (groin wound) - 09/2012 MRSA PCR Screen NEGATIVE - 02/11/2015, 02/13/2015 CLEARED BY INFECTION CONTROL Reported Meds & Prescriptions Reported Meds & Active Scripts Active Phenergan (Promethazine HCl) 25 Mg Tablet 25 Mg PO Q6H PRN Baclofen 10 Mg Tab 10 Mg PO Q8HR 5 Days Lidocaine Patch 12 HR (Lidocaine) 5 % Patch 1 Patch TOPICAL DAILY PRN Remove patch after 12 hours Percocet (Oxycodone-Acetaminophen) 10-325 mg Tab 1 Tab PO Q4H PRN Flexeril (Cyclobenzaprine HCl) 10 Mg Tab 10 Mg PO TID PRN 7 Days Reported Effexor (Venlafaxine HCl) 100 Mg Tab 225 Mg PO HS Bupropion HCl ER 24 HR (Bupropion HCl) 150 Mg Tab 200 Mg PO DAILY Yi Allergy (Fexofenadine HCl) 180 Mg Tab 180 Mg PO DAILY Protonix (Pantoprazole Sodium) 40 Mg Tab 40 Mg PO DAILY Singulair (Montelukast Sodium) 10 Mg Tab 10 Mg PO DAILY Geodon (Ziprasidone) 80 Mg Cap 80 Mg PO HS Review of Systems Except as stated in HPI: all other systems reviewed are Neg Physical Exam Narrative GENERAL: This is a well-developed well-nourished female who appears anxious. SKIN: Warm and dry. HEAD: Atraumatic. Normocephalic. EYES: Pupils equal and round. No scleral icterus. No injection or drainage. ENT: No nasal bleeding or discharge. Mucous membranes pink and moist. NECK: Trachea midline. No JVD. CARDIOVASCULAR: Regular rate and rhythm. No murmur appreciated. RESPIRATORY: No accessory muscle use. Clear to auscultation. Breath sounds equal bilaterally. GASTROINTESTINAL: Abdomen soft, non-tender, nondistended. Hepatic and splenic margins not palpable. MUSCULOSKELETAL: The patient has no reproducible tenderness to palpation to the back when the patient is distracted. She is wearing bilateral ankle braces. She has 5 out of 5 muscle strength in hip flexion, leg flexion and extension bilaterally. NEUROLOGICAL: Awake and alert. No obvious cranial nerve deficits. Motor grossly within normal limits. Normal speech. Data Data Last Documented VS Vital Signs Date Time Temp Pulse Resp B/P (MAP) Pulse Ox O2 Delivery O2 Flow Rate FiO2 12/19/16 16:21 98.5 83 16 129/81 (97) 99 Orders Orders Orphenadrine Inj (Norflex Inj) (12/19/16 16:45) Ed Discharge Order (12/19/16 16:34) MDM Medical Decision Making Medical Screen Exam Complete: Yes Emergency Medical Condition: Yes Medical Record Reviewed: Yes Differential Diagnosis Chronic pain, epidural abscess, osteomyelitis, herniated nucleus pulposus Narrative Course This patient is currently taking Percocet for her chronic pain and she says that she is allergic to NSAIDs. Ideally this patient would seek follow-up with a paint booth operator for long-term control of her chronic pain. She'll be discharged today with a short course of baclofen Lidoderm patches. Diagnosis Primary Impression: Low back pain Additional Instructions: Follow-up with her primary care physician. Do not drive or drink alcohol when taking baclofen. Med/Other Pt SpecificInfo: Prescription(s) given Scripts Promethazine (Phenergan) 25 Mg Tablet 25 MG PO Q6H Y for NAUSEA OR VOMITING, #15 TAB 0 Refills Prov: Yann Grace MD 12/19/16 Baclofen (Baclofen) 10 Mg Tab 10 MG PO Q8HR for 5 Days, TAB 0 Refills Prov: Yann Grace MD 12/19/16 Lidocaine Patch 12 HR (Lidocaine Patch 12 HR) 5 % Patch 1 PATCH TOPICAL DAILY Y for PAIN, #1 BOX 1 Refill Remove patch after 12 hours Prov: Yann Grace MD 12/19/16 Disposition: 01 DISCHARGE HOME Condition: Stable Mando Mello Dec 19, 2016 16:39
[2016-12-19] MEDS ORDERED: ORPHENADRINE INJ 60 MG/2 ML AMP IM ONE (16:45)
[2016-12-19] MEDS ORDERED: PROM25TA10 PO (16:48)
== END 2016-12-19 16:59 | disposition home or self-care (01) ==
LOC: PHEFT 16:15
DX: M54.5 Low back pain (principal); G89.29 Other chronic pain
CPT/HCPCS: 96372; 99284; J2360

== ENCOUNTER 2017-01-20 12:14 | Emergency (ER) | payer MEDICAID ==
[~2017-01-20] VITALS: Ht 165.1 cm; Wt 66.0 kg
[~2017-01-20 12:14] MED LIST changes: +BACL10TA PO; -HYDR-3533 PO; +LIDO1PAD52 TOPICAL; +PROM25TA10 PO; -TRAZ100T4 PO
[2017-01-20 12:42] VITALS: BP 131/78; PULSE 87; RESP 18; TEMP 98.4; O2SAT 98
[2017-01-20] MEDS ORDERED: OMEP40CA2 PO (13:46)
[2017-01-20] MEDS ORDERED: KLON2TAB PO (13:46)
[2017-01-20] MEDS ORDERED: SUBO8MIS SL (13:46)
--- NOTE | 2017-01-20 14:43 | PD ---
HPI Chief Complaint: Medication Refill Request Time Seen by Provider: 14:40 Travel History International Travel<30 days: No Contact w/Intl Traveler<30days: No Traveled to known affect area: No History of Present Illness HPI 51-year-old female requesting refill for Klonopin. Patient has history of anxiety and PTSD. Patient has been taking Klonopin. Patient states that she ran out of her Klonopin. Patient states that her physicians are out of town. Patient denies any medical problem today. History Past Medical Histgory Tetanus Vaccination: < 5 Years Menopausal: Yes Hx Cancer: No Social History Alcohol Use: No Tobacco Use: No Allergies-Medications (Allergen,Severity, Reaction): Coded Allergies: fentanyl (Verified Allergy, Severe, GI UPSET, 01/20/17) ibuprofen (Verified Allergy, Severe, Anaphylaxis, 01/20/17) ketorolac (Verified Allergy, Severe, Anaphylaxis, 01/20/17) *MDRO Multi-Drug Resistant Organism (Verified Adverse Reaction, Unknown, Cleared, 01/20/17) MRSA (groin wound) - 09/2012 MRSA PCR Screen NEGATIVE - 02/11/2015, 02/13/2015 CLEARED BY INFECTION CONTROL Reported Meds & Prescriptions Reported Meds & Active Scripts Active Reported Omeprazole 40 Mg Cap 40 Mg PO DAILY Klonopin (Clonazepam) 2 Mg Tab 2 Mg PO TID Suboxone Sublingual Film (Buprenorphine-Naloxone Sublingual Film) 8-2 Mg Film 1 Film SL Unique ID number required: Effexor (Venlafaxine HCl) 100 Mg Tab 225 Mg PO HS Bupropion HCl ER 24 HR (Bupropion HCl) 150 Mg Tab 200 Mg PO DAILY Yi Allergy (Fexofenadine HCl) 180 Mg Tab 180 Mg PO DAILY Singulair (Montelukast Sodium) 10 Mg Tab 10 Mg PO DAILY Geodon (Ziprasidone) 80 Mg Cap 80 Mg PO HS Review of Systems General / Constitutional: No: Fever Eyes: No: Visual changes HENT: No: Headaches Cardiovascular: No: Chest Pain or Discomfort Respiratory: No: Shortness of Breath Gastrointestinal: No: Abdominal Pain Genitourinary: No: Dysuria Musculoskeletal: No: Pain Skin: No Rash Neurologic: No: Weakness Psychiatric: No: Depression Endocrine: No: Polydipsia Hematologic/Lymphatic: No: Easy Bruising Physical Exam Narrative GENERAL: Well-nourished, well-developed patient. SKIN: Focused skin assessment warm/dry. HEAD: Normocephalic. EYES: No scleral icterus. No injection or drainage. NECK: Supple, trachea midline. No JVD or lymphadenopathy. CARDIOVASCULAR: Regular rate and rhythm without murmurs, gallops, or rubs. RESPIRATORY: Breath sounds equal bilaterally. No accessory muscle use. GASTROINTESTINAL: Abdomen soft, non-tender, nondistended. MUSCULOSKELETAL: No cyanosis, or edema. BACK: Nontender without obvious deformity. No CVA tenderness. Data Data Last Documented VS Vital Signs Date Time Temp Pulse Resp B/P (MAP) Pulse Ox O2 Delivery O2 Flow Rate FiO2 01/20/17 12:42 98.4 87 18 131/78 (95) 98 MDM Medical Screen Exam Complete: Yes Emergency Medical Condition: No Narrative Course 51-year-old female requesting refill of Klonopin for her anxiety and PTSD. Medical screening exam completed. Patient was referred to local medical clinic for refill medication. Primary Impression: Anxiety Additional Instructions: Patient was referred to local clinic for refill of medication. Disposition: [facility]-ED USE ONLY Condition: Stable Yann Grace MD Jan 20, 2017 14:43
== END 2017-01-20 14:45 | disposition left against medical advice (07) ==
LOC: PHEFT 12:14
DX: F41.9 Anxiety disorder, unspecified (principal)
CPT/HCPCS: 99281